=== PATIENT | male | born 1995 | race Caucasian/White ===

== ENCOUNTER 2016-11-27 22:23 | Emergency (ER) | payer OTHER ==
[2016-11-27 22:32] VITALS: PULSE 88; TEMP 97.9
--- NOTE | 2016-11-27 23:26 | CT ---
EXAMINATION TYPE: CT brain cspine wo con DATE OF EXAM: 11/27/2016 11:20 PM COMPARISON: 05/11/2013 HISTORY: Prior on synapse 2012, pt found unresponsive, overdose Findings The ventricles and sulci appear normal. There is no mass effect nor midline shift. There is no sign o f intracranial hemorrhage. The calvarium is intact. The cervical vertebra have mild straightening. Posterior elements are intact. Disc spaces are normal. Skull base is intact. mGycm Automated exposure control for dose reduction was used. TECHNIQUE: CT scan of the head and cervical spine are performed without contrast. IMPRESSION: Normal CT scan of the brain. Normal CT scan of the cervical spine. There is straightening of the vertebra that is probably positio nal. This is a change compared to last exam.
--- NOTE | 2016-11-28 00:10 | ED ---
Overdose HPI - General Chief Complaint: Overdose Stated Complaint: OVERDOSE Time Seen by Provider: 11/27/16 22:23 Source: patient, EMS, RN notes reviewed Mode of arrival: EMS - History of Present Illness Initial Comments: This is a 20-year-old male who apparently was very lethargic tonight and became somewhat unresponsive and did fall hitting his head. EMS was called he was given nasal Narcan he did seem to arouse after this. He is brought in for evaluation. He complains of a headache also some neck pain bees had a history of a fracture before. He denies any drug use denies any fevers chills or sweats. MD Complaint: other - Related Data Home Medications Medication Instructions Recorded Confirmed Albuterol Inhaler [Ventolin Hfa 1 - 2 puff INHALATION RT-Q6H PRN 11/27/16 Inhaler] Allergies Allergy/AdvReac Type Severity Reaction Status Date / Time No Known Allergies Allergy Unverified 11/27/16 22:40 Review of Systems ROS Statement: Those systems with pertinent positive or pertinent negative responses have been documented in the HPI. ROS Other: All systems not noted in ROS Statement are negative. Past Medical History Past Medical History: Asthma, Myocardial Infarction ([place]) History of Any Multi-Drug Resistant Organisms: None Reported Smoking Status: Never smoker Past Alcohol Use History: None Reported Past Drug Use History: None Reported General Exam - General Exam Comments Initial Comments: This is a well-developed well-nourished awake alert oriented history male he does demonstrate a [place] Coma Scale currently of 15 General appearance: alert, in no apparent distress Head exam: Present: normocephalic, other Eye exam: Present: normal appearance, PERRL, EOMI. Absent: scleral icterus, conjunctival injection, periorbital swelling ENT exam: Present: normal exam, mucous membranes moist Neck exam: Present: normal inspection. Absent: tenderness, meningismus, lymphadenopathy Respiratory exam: Present: normal lung sounds bilaterally. Absent: respiratory distress, wheezes, rales, rhonchi, stridor Cardiovascular Exam: Present: regular rate, normal rhythm, normal heart sounds. Absent: systolic murmur, diastolic murmur, rubs, gallop, clicks GI/Abdominal exam: Present: soft, normal bowel sounds. Absent: distended, tenderness, guarding, rebound, rigid Extremities exam: Present: normal inspection, full ROM, normal capillary refill. Absent: tenderness, pedal edema, joint swelling, calf tenderness Back exam: Present: normal inspection Neurological exam: Present: alert, oriented X3, CN II-XII intact Psychiatric exam: Present: normal affect, normal mood Skin exam: Present: warm, dry, intact, normal color. Absent: rash Course Vital Signs 11/27/16 22:28 Temperature 97.9 F Pulse Rate 88 Respiratory 20 Rate Blood Pressure 161/78 O2 Sat by Pulse 98 Oximetry Medical Decision Making - Medical Decision Making I did discuss the findings with the patient. He has agreed for a CAT scan and drug screen. The drug screen was negative the alcohol back chest was 0.87. - Lab Data Lab Results 11/27/16 Range/Units 23:25 Urine Opiates Screen Not Detected (NotDetected) Ur Oxycodone Screen Not Detected (NotDetected) Urine Methadone Screen Not Detected (NotDetected) Ur Propoxyphene Screen Not Detected (NotDetected) Ur Barbiturates Screen Not Detected (NotDetected) U Tricyclic Antidepress Not Detected (NotDetected) Ur Phencyclidine Scrn Not Detected (NotDetected) Ur Amphetamines Screen Not Detected (NotDetected) U Methamphetamines Scrn Not Detected (NotDetected) U Benzodiazepines Scrn Not Detected (NotDetected) Urine Cocaine Screen Not Detected (NotDetected) U Marijuana (THC) Screen Not Detected (NotDetected) - Radiology Data Radiology results: report reviewed (CT negative for acute findings.), image reviewed Disposition Clinical Impression: Scalp contusion, Alcohol ingestion Disposition: HOME SELF-CARE Condition: Good Instructions: Scalp Contusion in Adults (ED)
[2016-11-28 00:29] VITALS: BP 149/87; RESP 16
== END 2016-11-28 00:29 | disposition home or self-care (01) ==
LOC: EC 22:23 → SUPCPDRO 22:23 → EC 11-28 00:29
DX: S00.03XA Contusion of scalp, initial encounter (principal); T51.91XA Toxic effect of unspecified alcohol, accidental (unintentional), initial encounter; M54.2 Cervicalgia; W01.10XA Fall on same level from slipping, tripping and stumbling with subsequent striking against unspecified object, initial encounter
CPT/HCPCS: 70450; 72125; 80306; 82075; 99285

== ENCOUNTER 2017-01-20 05:32 | Emergency (ER) | payer OTHER ==
[2017-01-20] MEDS ORDERED: SODIUM CHLORIDE 0.9% 1,000 ML IV ONE ×2 (05:37→05:41)
--- NOTE | 2017-01-20 05:37 | ED ---
General Adult HPI - General Chief complaint: Chest Pain Stated complaint: Chest Pain Time Seen by Provider: 01/20/17 05:32 Source: RN notes reviewed - History of Present Illness Initial comments: This is a 21-year-old male presents emergency department stating that he got dizzy while at work and patient states he had not been drinking a lot. Patient states after that he got some left-sided chest pain he denies any shortness of breath. Patient denies any nausea. Patient states the chest pain still persists at this time. Patient states the room feels like it spinning and he still remained somewhat lightheaded. Patient denies any abdominal pain patient denies nausea vomiting diarrhea. Patient denies any recent fever chills or cough. Patient denies headache patient denies any numbness or focal weakness. - Related Data Home Medications Medication Instructions Recorded Confirmed No Known Home Medications [No 01/20/17 01/20/17 Known Home Medications] Allergies Allergy/AdvReac Type Severity Reaction Status Date / Time No Known Allergies Allergy Verified 01/20/17 05:40 Review of Systems ROS Statement: Those systems with pertinent positive or pertinent negative responses have been documented in the HPI. ROS Other: All systems not noted in ROS Statement are negative. Past Medical History Past Medical History: Asthma, Myocardial Infarction ([place]) History of Any Multi-Drug Resistant Organisms: None Reported Smoking Status: Never smoker Past Alcohol Use History: None Reported Past Drug Use History: None Reported General Exam - General Exam Comments Initial Comments: GENERAL: Patient is well-developed and well-nourished. Patient is nontoxic and well- hydrated and is in mild distress. ENT: Neck is soft and supple. No significant lymphadenopathy is noted. Oropharynx is clear. Moist mucous membranes. Neck has full range of motion without eliciting any pain. EYES: The sclera were anicteric and conjunctiva were pink and moist. Extraocular movements were intact and pupils were equal round and reactive to light. Eyelids were unremarkable. PULMONARY: Unlabored respirations. Good breath sounds bilaterally. No audible rales rhonchi or wheezing was noted. CARDIOVASCULAR: There is a regular rate and rhythm without any murmurs gallops or rubs. ABDOMEN: Soft and nontender with normal bowel sounds. No palpable organomegaly was noted. There is no palpable pulsatile mass. SKIN: Skin is clear with no lesions or rashes and otherwise unremarkable. NEUROLOGIC: Patient is alert and oriented x3. Cranial nerves II through XII are grossly intact. Motor and sensory are also intact. Normal speech, volume and content. Symmetrical smile. MUSCULOSKELETAL: Normal extremities with adequate strength and full range of motion. No lower extremity swelling or edema. No calf tenderness. LYMPHATICS: No significant lymphadenopathy is noted PSYCHIATRIC: Normal psychiatric evaluation. Normal interpersonal interactions appears functionally intact in deals appropriately with others. No signs of depression. Patient seems mildly anxious Course Vital Signs 01/20/17 05:34 Temperature 98.9 F Pulse Rate 98 Respiratory 18 Rate Blood Pressure 150/85 O2 Sat by Pulse 100 Oximetry Medical Decision Making - Medical Decision Making EKG shows a normal sinus rhythm at 80 bpm [place] interval is 138 QRS is 86 QT interval 354 QTC is 408. Patient's EKG shows no ST segment elevation or depression or T-wave abdomen is noted Chest x-ray shows no acute abnormality. One taken the room to reevaluate the patient he was sleeping in bed with his girlfriend. Patient was in actually no distress - Lab Data Result diagrams: 01/20/17 04:36 01/20/17 04:36 Lab Results 01/20/17 01/20/17 01/20/17 Range/Units 04:36 04:36 04:36 WBC 8.8 (3.8-10.6) k/uL RBC 4.78 (4.30-5.90) m/uL Hgb 15.0 (13.0-17.5) gm/dL Hct 44.3 (39.0-53.0) % MCV 92.6 (80.0-100.0) fL MCH 31.3 (25.0-35.0) pg MCHC 33.8 (31.0-37.0) g/dL RDW 13.1 (11.5-15.5) % Plt Count 177 (150-450) k/uL Neutrophils % 62 % Lymphocytes % 26 % Monocytes % 5 % Eosinophils % 3 % Basophils % 2 % Neutrophils # 5.4 (1.3-7.7) k/uL Lymphocytes # 2.3 (1.0-4.8) k/uL Monocytes # 0.5 (0-1.0) k/uL Eosinophils # 0.3 (0-0.7) k/uL Basophils # 0.2 (0-0.2) k/uL PT (9.0-12.0) sec INR (<1.1) APTT (22.0-30.0) sec Sodium 139 (137-145) mmol/L Potassium 4.1 (3.5-5.1) mmol/L Chloride 106 (98-107) mmol/L Carbon Dioxide 22 (22-30) mmol/L Anion Gap 11 mmol/L BUN 10 (9-20) mg/dL Creatinine 0.90 (0.66-1.25) mg/dL Est GFR (MDRD) Af Amer >60 (>60 ml/min/1.73 sqM) Est GFR (MDRD) Non-Af >60 (>60 ml/min/1.73 sqM) Glucose 98 (74-99) mg/dL Calcium 9.6 (8.4-10.2) mg/dL Magnesium 2.0 (1.6-2.3) mg/dL Total Bilirubin 1.1 (0.2-1.3) mg/dL AST 30 (17-59) U/L ALT 27 (21-72) U/L Alkaline Phosphatase 62 (38-126) U/L Total Creatine Kinase 214 H (55-170) U/L CK-MB (CK-2) 1.3 (0.0-2.4) ng/mL CK-MB (CK-2) Rel Index 0.6 Troponin I <0.012 (0.000-0.034) ng/mL Total Protein 7.2 (6.3-8.2) g/dL Albumin 4.6 (3.5-5.0) g/dL Urine Opiates Screen (NotDetected) Ur Oxycodone Screen (NotDetected) Urine Methadone Screen (NotDetected) Ur Propoxyphene Screen (NotDetected) Ur Barbiturates Screen (NotDetected) U Tricyclic Antidepress (NotDetected) Ur Phencyclidine Scrn (NotDetected) Ur Amphetamines Screen (NotDetected) U Methamphetamines Scrn (NotDetected) U Benzodiazepines Scrn (NotDetected) Urine Cocaine Screen (NotDetected) U Marijuana (THC) Screen (NotDetected) 01/20/17 01/20/17 Range/Units 04:36 06:15 WBC (3.8-10.6) k/uL RBC (4.30-5.90) m/uL Hgb (13.0-17.5) gm/dL Hct (39.0-53.0) % MCV (80.0-100.0) fL MCH (25.0-35.0) pg MCHC (31.0-37.0) g/dL RDW (11.5-15.5) % Plt Count (150-450) k/uL Neutrophils % % Lymphocytes % % Monocytes % % Eosinophils % % Basophils % % Neutrophils # (1.3-7.7) k/uL Lymphocytes # (1.0-4.8) k/uL Monocytes # (0-1.0) k/uL Eosinophils # (0-0.7) k/uL Basophils # (0-0.2) k/uL PT 11.8 (9.0-12.0) sec INR 1.2 (<1.1) APTT 27.0 (22.0-30.0) sec Sodium (137-145) mmol/L Potassium (3.5-5.1) mmol/L Chloride (98-107) mmol/L Carbon Dioxide (22-30) mmol/L Anion Gap mmol/L BUN (9-20) mg/dL Creatinine (0.66-1.25) mg/dL Est GFR (MDRD) Af Amer (>60 ml/min/1.73 sqM) Est GFR (MDRD) Non-Af (>60 ml/min/1.73 sqM) Glucose (74-99) mg/dL Calcium (8.4-10.2) mg/dL Magnesium (1.6-2.3) mg/dL Total Bilirubin (0.2-1.3) mg/dL AST (17-59) U/L ALT (21-72) U/L Alkaline Phosphatase (38-126) U/L Total Creatine Kinase (55-170) U/L CK-MB (CK-2) (0.0-2.4) ng/mL CK-MB (CK-2) Rel Index Troponin I (0.000-0.034) ng/mL Total Protein (6.3-8.2) g/dL Albumin (3.5-5.0) g/dL Urine Opiates Screen Not Detected (NotDetected) Ur Oxycodone Screen Not Detected (NotDetected) Urine Methadone Screen Not Detected (NotDetected) Ur Propoxyphene Screen Not Detected (NotDetected) Ur Barbiturates Screen Not Detected (NotDetected) U Tricyclic Antidepress Not Detected (NotDetected) Ur Phencyclidine Scrn Not Detected (NotDetected) Ur Amphetamines Screen Not Detected (NotDetected) U Methamphetamines Scrn Not Detected (NotDetected) U Benzodiazepines Scrn Not Detected (NotDetected) Urine Cocaine Screen Not Detected (NotDetected) U Marijuana (THC) Screen Not Detected (NotDetected) Disposition Clinical Impression: Atypical chest pain Disposition: HOME SELF-CARE Condition: Good Instructions: Chest Pain (ED) Referrals: Marcelo Chicas MD [Primary Care Provider] - 1-2 days Time of Disposition: 06:54
[2017-01-20 05:50] LABS: Basophils # (A) 0.2 k/uL (0-0.2); Basophils % (A) 2 %; CHCM 34.7; Eosinophils # (A) 0.3 k/uL (0-0.7); Eosinophils % (A) 3 %; HCT 44.3 % (39.0-53.0); HDW 2.41; Luc # (Auto) 0.16; Luc % (Auto) 2; Lymphocytes # (A) 2.3 k/uL (1.0-4.8); Lymphocytes % (A) 26 %; MCH 31.3 pg (25.0-35.0); MCHC 33.8 g/dL (31.0-37.0); MCV 92.6 fL (80.0-100.0); Mean Platelet Volume 8.2; Monocytes # (A) 0.5 k/uL (0-1.0); Monocytes % (A) 5 %; Neutrophils # (A) 5.4 k/uL (1.3-7.7); Neutrophils % (A) 62 %; RBC 4.78 m/uL (4.30-5.90); RDW 13.1 % (11.5-15.5); WBC 8.8 k/uL (3.8-10.6); WBC (Perox) 8.83
[2017-01-20 06:00] LABS: INR 1.2 (<1.1); Prothrombin Time 11.8 sec (9.0-12.0)
[2017-01-20 06:05] LABS: ALT 27 U/L (21-72); AST 30 U/L (17-59); Alkaline Phosphatase 62 U/L (38-126); Anion Gap 11 mmol/L; Blood Urea Nitrogen 10 mg/dL (9-20); Calcium 9.6 mg/dL (8.4-10.2); Carbon Dioxide 22 mmol/L (22-30); Chloride 106 mmol/L (98-107); Glucose 98 mg/dL (74-99); Non-African American GFR(MDRD) >60 (>60 ml/min/1.73 sqM); Potassium 4.1 mmol/L (3.5-5.1); Sodium 139 mmol/L (137-145); Total Bilirubin 1.1 mg/dL (0.2-1.3); Total Protein 7.2 g/dL (6.3-8.2)
[2017-01-20 06:13] LABS: Creatine Kinase 214 U/L (55-170)
--- NOTE | 2017-01-20 06:19 | XR ---
EXAM: XR Chest, 2 Views. CLINICAL HISTORY: Reason: Chest Pain TECHNIQUE: Frontal and lateral views of the chest. COMPARISON: No relevant prior studies available. FINDINGS: Lungs: Unremarkable. No consolidation. Pleural spaces: Unremarkable. No pneumothorax. Heart: Unremarkable. No cardiomegaly. Mediastinum: Unremarkable. Bones: Unremarkable. No acute fracture. IMPRESSION: Normal chest.
[2017-01-20 06:25] LABS: Creatine Kinase MB 1.3 ng/mL (0.0-2.4); Troponin I <0.012 ng/mL (0.000-0.034)
[2017-01-20 07:10] VITALS: BP 125/59; PULSE 90; RESP 16; TEMP 97.9
== END 2017-01-20 07:14 | disposition home or self-care (01) ==
LOC: EC 05:32
DX: R07.89 Other chest pain (principal); R42 Dizziness and giddiness
CPT/HCPCS: 36415; 71020; 80053; 80306; 82550; 82553; 83735; 84484; 85025; 85610; 85730; 93005; 96360; 99285

== ENCOUNTER 2018-01-07 09:26 | Emergency (ER) | payer OTHER ==
[2018-01-07 09:34] VITALS: RESP 20
--- NOTE | 2018-01-07 10:00 | XR ---
EXAMINATION TYPE: XR chest 2V DATE OF EXAM: 01/07/2018 COMPARISON: 01/20/2017 HISTORY: Chest pain TECHNIQUE: Frontal and lateral views of the chest are obtained. FINDINGS: There is no focal air space opacity. No evidence for pneumothorax. No pleural effusion. The cardiac silhouette size is within normal limits. The osseous structures are grossly intact. IMPRESSION: 1. No acute cardiopulmonary process.
[2018-01-07 10:01] LABS: Basophils % (A) 0 %; Eosinophils # (A) 0.1 k/uL (0-0.7); Eosinophils % (A) 0 %; HCT 49.1 % (39.0-53.0); Lymphocytes # (A) 1.5 k/uL (1.0-4.8); Lymphocytes % (A) 10 %; MCH 30.5 pg (25.0-35.0); MCHC 34.5 g/dL (31.0-37.0); MCV 88.5 fL (80.0-100.0); Mean Platelet Volume 7.5; Monocytes # (A) 0.5 k/uL (0-1.0); Monocytes % (A) 3 %; Neutrophils # (A) 12.6 k/uL (1.3-7.7); Neutrophils % (A) 85 %; Platelet Count 234 k/uL (150-450); RBC 5.55 m/uL (4.30-5.90); RDW 12.7 % (11.5-15.5); WBC 14.8 k/uL (3.8-10.6)
[2018-01-07 10:12] LABS: INR 1.1 (<1.2); Partial Thromboplastin Time 24.4 sec (22.0-30.0); Prothrombin Time 10.9 sec (9.0-12.0)
[2018-01-07 10:13] LABS: ALT 28 U/L (21-72); AST 30 U/L (17-59); Albumin 4.9 g/dL (3.5-5.0); Alkaline Phosphatase 70 U/L (38-126); Anion Gap 15 mmol/L; Blood Urea Nitrogen 10 mg/dL (9-20); Calcium 10.5 mg/dL (8.4-10.2); Carbon Dioxide 24 mmol/L (22-30); Chloride 103 mmol/L (98-107); Glucose 105 mg/dL (74-99); Magnesium 1.9 mg/dL (1.6-2.3); Potassium 4.2 mmol/L (3.5-5.1); Sodium 142 mmol/L (137-145); Total Bilirubin 0.7 mg/dL (0.2-1.3); Total Protein 7.6 g/dL (6.3-8.2)
[2018-01-07 10:35] LABS: Creatine Kinase 144 U/L (55-170)
[2018-01-07 10:48] LABS: Creatine Kinase MB 0.8 ng/mL (0.0-2.4); Troponin I <0.012 ng/mL (0.000-0.034)
[2018-01-07] MEDS ORDERED: SODIUM CHLORIDE 0.9% 500 ML IV ONE (10:49)
--- NOTE | 2018-01-07 10:58 | ED ---
General Adult HPI - General Chief complaint: Syncope Stated complaint: SYNCOPE Time Seen by Provider: 01/07/18 09:29 Source: patient, RN notes reviewed, old records reviewed Mode of arrival: wheelchair Limitations: no limitations - History of Present Illness Initial comments: 21-year-old male presents for evaluation of syncopal episode. Patient was on labor and delivery floor with his who is currently in labor, he became very emotional at the thought of having a new baby, he felt lightheaded and went unconscious. He was unconscious for 5-10 minutes. He did return to normal after presenting to the emergency department. There was no injury noted. Patient had no pain complaint. Denies any chest pain or palpitations. He had some numbness in both of his legs which was resolving. No vomiting or diarrhea. Patient has past medical history of asthma and hypoglycemic episodes. Blood sugar was checked and this was normal. - Related Data Home Medications Medication Instructions Recorded Confirmed No Known Home Medications [No 01/20/17 01/07/18 Known Home Medications] Allergies Allergy/AdvReac Type Severity Reaction Status Date / Time No Known Allergies Allergy Verified 01/07/18 09:57 Review of Systems ROS Statement: Those systems with pertinent positive or pertinent negative responses have been documented in the HPI. ROS Other: All systems not noted in ROS Statement are negative. Past Medical History Past Medical History: Asthma, Myocardial Infarction ([place]) History of Any Multi-Drug Resistant Organisms: None Reported Past Surgical History: Orthopedic Surgery, Tonsillectomy Additional Past Surgical History / Comment(s): bilateral knee, bilateral rotator cuff Past Psychological History: No Psychological Hx Reported Smoking Status: Never smoker Past Alcohol Use History: None Reported Past Drug Use History: None Reported General Exam Limitations: no limitations General appearance: alert, in no apparent distress Head exam: Present: atraumatic, normocephalic Eye exam: Present: normal appearance, PERRL, EOMI ENT exam: Present: normal exam Neck exam: Present: normal inspection. Absent: tenderness, meningismus Respiratory exam: Present: normal lung sounds bilaterally. Absent: respiratory distress, wheezes, rales Cardiovascular Exam: Present: regular rate, normal rhythm GI/Abdominal exam: Present: soft. Absent: distended, tenderness, guarding Extremities exam: Present: normal inspection, full ROM. Absent: tenderness Neurological exam: Present: alert, oriented X3, CN II-XII intact. Absent: motor sensory deficit Psychiatric exam: Present: normal affect, normal mood Skin exam: Present: warm, dry, intact. Absent: cyanosis, diaphoretic Course Vital Signs 01/07/18 01/07/18 09:32 10:00 Temperature 98.0 F Pulse Rate 93 82 Respiratory 20 20 Rate Blood Pressure 168/89 144/78 O2 Sat by Pulse 100 98 Oximetry EKG Findings - EKG Comments: EKG Findings:: EKG: Normal sinus rhythm, rate of 96, NC interval 126, QRS duration 84, QTC 432 Medical Decision Making - Medical Decision Making 22-year-old male with syncopal episode likely related to emotional stress. Patient's physical exam is unremarkable. EKG shows normal sinus rhythm. Workup reveals normal chest x-ray, normal electrolytes. White blood cell, mildly elevated likely reactive. On reevaluation, patient has normal vital signs. He is feeling much better. He is eager for discharge to see his new baby. - Lab Data Result diagrams: 01/07/18 09:35 01/07/18 09:35 Lab Results 01/07/18 01/07/18 01/07/18 Range/Units 09:35 09:35 09:35 WBC 14.8 H (3.8-10.6) k/uL RBC 5.55 (4.30-5.90) m/uL Hgb 17.0 (13.0-17.5) gm/dL Hct 49.1 (39.0-53.0) % MCV 88.5 (80.0-100.0) fL MCH 30.5 (25.0-35.0) pg MCHC 34.5 (31.0-37.0) g/dL RDW 12.7 (11.5-15.5) % Plt Count 234 (150-450) k/uL Neutrophils % 85 % Lymphocytes % 10 % Monocytes % 3 % Eosinophils % 0 % Basophils % 0 % Neutrophils # 12.6 H (1.3-7.7) k/uL Lymphocytes # 1.5 (1.0-4.8) k/uL Monocytes # 0.5 (0-1.0) k/uL Eosinophils # 0.1 (0-0.7) k/uL Basophils # 0.0 (0-0.2) k/uL PT (9.0-12.0) sec INR (<1.2) APTT (22.0-30.0) sec Sodium 142 (137-145) mmol/L Potassium 4.2 (3.5-5.1) mmol/L Chloride 103 (98-107) mmol/L Carbon Dioxide 24 (22-30) mmol/L Anion Gap 15 mmol/L BUN 10 (9-20) mg/dL Creatinine 0.89 (0.66-1.25) mg/dL Est GFR (CKD-EPI)AfAm >90 (>60 ml/min/1.73 sqM) Est GFR (CKD-EPI)NonAf >90 (>60 ml/min/1.73 sqM) Glucose 105 H (74-99) mg/dL Calcium 10.5 H (8.4-10.2) mg/dL Magnesium 1.9 (1.6-2.3) mg/dL Total Bilirubin 0.7 (0.2-1.3) mg/dL AST 30 (17-59) U/L ALT 28 (21-72) U/L Alkaline Phosphatase 70 (38-126) U/L Total Creatine Kinase 144 (55-170) U/L CK-MB (CK-2) 0.8 (0.0-2.4) ng/mL CK-MB (CK-2) Rel Index 0.6 Troponin I <0.012 (0.000-0.034) ng/mL Total Protein 7.6 (6.3-8.2) g/dL Albumin 4.9 (3.5-5.0) g/dL 01/07/18 Range/Units 09:35 WBC (3.8-10.6) k/uL RBC (4.30-5.90) m/uL Hgb (13.0-17.5) gm/dL Hct (39.0-53.0) % MCV (80.0-100.0) fL MCH (25.0-35.0) pg MCHC (31.0-37.0) g/dL RDW (11.5-15.5) % Plt Count (150-450) k/uL Neutrophils % % Lymphocytes % % Monocytes % % Eosinophils % % Basophils % % Neutrophils # (1.3-7.7) k/uL Lymphocytes # (1.0-4.8) k/uL Monocytes # (0-1.0) k/uL Eosinophils # (0-0.7) k/uL Basophils # (0-0.2) k/uL PT 10.9 (9.0-12.0) sec INR 1.1 (<1.2) APTT 24.4 (22.0-30.0) sec Sodium (137-145) mmol/L Potassium (3.5-5.1) mmol/L Chloride (98-107) mmol/L Carbon Dioxide (22-30) mmol/L Anion Gap mmol/L BUN (9-20) mg/dL Creatinine (0.66-1.25) mg/dL Est GFR (CKD-EPI)AfAm (>60 ml/min/1.73 sqM) Est GFR (CKD-EPI)NonAf (>60 ml/min/1.73 sqM) Glucose (74-99) mg/dL Calcium (8.4-10.2) mg/dL Magnesium (1.6-2.3) mg/dL Total Bilirubin (0.2-1.3) mg/dL AST (17-59) U/L ALT (21-72) U/L Alkaline Phosphatase (38-126) U/L Total Creatine Kinase (55-170) U/L CK-MB (CK-2) (0.0-2.4) ng/mL CK-MB (CK-2) Rel Index Troponin I (0.000-0.034) ng/mL Total Protein (6.3-8.2) g/dL Albumin (3.5-5.0) g/dL Disposition Clinical Impression: Syncope Disposition: HOME SELF-CARE Condition: Good Instructions: Syncope (ED) Is patient prescribed a controlled substance at d/c from ED?: No Referrals: None,Stated [Primary Care Provider] - 1-2 days Rachel Jameson MD [REFERRING] - 1-2 days Time of Disposition: 10:57
[2018-01-07 11:05] VITALS: BP 112/67; PULSE 99; TEMP 98.5
== END 2018-01-07 11:15 | disposition home or self-care (01) ==
LOC: EC 09:26
DX: R55 Syncope and collapse (principal); D72.829 Elevated white blood cell count, unspecified; R42 Dizziness and giddiness; R20.0 Anesthesia of skin; Z98.890 Other specified postprocedural states
CPT/HCPCS: 36415; 71046; 80053; 82550; 82553; 83735; 84484; 85025; 85610; 85730; 93005; 99284

== ENCOUNTER 2018-02-09 06:03 | Observation (INO) | payer OTHER ==
[2018-02-09] MEDS ORDERED: SODIUM CHLORIDE 0.9% 1,000 ML IV STA (06:20)
[2018-02-09 06:25] LABS: Glucose,Whole Blood 85 mg/dL (75-99)
[2018-02-09 06:33] LABS: Basophils # (A) 0.1 k/uL (0-0.2); Basophils % (A) 1 %; Eosinophils # (A) 0.3 k/uL (0-0.7); Eosinophils % (A) 3 %; HCT 43.7 % (39.0-53.0); HGB 15.7 gm/dL (13.0-17.5); Lymphocytes # (A) 2.8 k/uL (1.0-4.8); Lymphocytes % (A) 30 %; MCH 31.8 pg (25.0-35.0); MCHC 35.9 g/dL (31.0-37.0); MCV 88.8 fL (80.0-100.0); Mean Platelet Volume 7.5; Monocytes # (A) 0.5 k/uL (0-1.0); Monocytes % (A) 5 %; Neutrophils # (A) 5.6 k/uL (1.3-7.7); Neutrophils % (A) 59 %; Platelet Count 186 k/uL (150-450); RBC 4.93 m/uL (4.30-5.90); WBC 9.5 k/uL (3.8-10.6)
[2018-02-09 06:48] LABS: ALT 24 U/L (21-72); AST 27 U/L (17-59); Albumin 4.2 g/dL (3.5-5.0); Alkaline Phosphatase 56 U/L (38-126); Anion Gap 13 mmol/L; Blood Urea Nitrogen 19 mg/dL (9-20); Calcium 9.6 mg/dL (8.4-10.2); Carbon Dioxide 20 mmol/L (22-30); Chloride 104 mmol/L (98-107); Glucose 79 mg/dL (74-99); Magnesium 1.6 mg/dL (1.6-2.3); Potassium 4.1 mmol/L (3.5-5.1); Sodium 137 mmol/L (137-145); Total Bilirubin 0.8 mg/dL (0.2-1.3); Total Protein 6.5 g/dL (6.3-8.2)
[2018-02-09 06:53] LABS: D-Dimer 0.25 mg/L FEU (<0.60); INR 1.2 (<1.2); Prothrombin Time 11.4 sec (9.0-12.0)
[2018-02-09 06:54] LABS: Creatine Kinase 171 U/L (55-170)
[2018-02-09 07:06] LABS: Creatine Kinase MB 1.3 ng/mL (0.0-2.4); Troponin I <0.012 ng/mL (0.000-0.034)
--- NOTE | 2018-02-09 07:14 | XR ---
EXAMINATION TYPE: XR chest 2V DATE OF EXAM: 02/09/2018 COMPARISON: 01/07/2018 HISTORY: 22-year-old male with chest pain TECHNIQUE: AP and lateral views FINDINGS: The cardiomediastinal silhouette, aorta, and pulmonary vasculature are within normal limits. Lungs an d pleural spaces are clear. IMPRESSION: No acute cardiopulmonary process.
[2018-02-09 07:41] LABS: Partial Thromboplastin Time 21.1 sec (22.0-30.0)
[2018-02-09 08:29] LABS: Appearance,Urine Clear (Clear); Bilirubin,Urine Negative (Negative); Blood,Urine Negative (Negative); Color,Urine Yellow; Glucose,Urine (UA) Negative (Negative); Hyaline Casts,Urine 5 /lpf (0-2); Ketones,Urine Negative (Negative); Leukocyte Esterase,Urine Moderate (Negative); Mucus,Urine Rare /hpf; Nitrite,Urine Negative (Negative); Protein,Urine Negative (Negative); Specific Gravity,Urine 1.013 (1.001-1.035); Squamous Epithelial Cell,Urine <1 /hpf (0-4); Urobilinogen,Urine <2.0 mg/dL (<2.0); WBC,Urine 5 /hpf (0-5)
[2018-02-09] MEDS ORDERED: MORPHINE SULFATE 2 MG/ML SYRINGE IV PRN (08:38)
[2018-02-09] MEDS ORDERED: NITROGLYCERIN SL TABS 0.4 MG TAB SUBLINGUAL PRN (08:38)
--- NOTE | 2018-02-09 08:38 | ED ---
Chest Pain HPI - General Chief Complaint: Chest Pain Stated Complaint: heat exhaustion Time Seen by Provider: 02/09/18 06:11 Source: patient, EMS Mode of arrival: EMS Limitations: no limitations - History of Present Illness Initial Comments: 22 years old gentleman with history of chest pain got very dizzy almost passed out and now presents with the chest pain he said he has a history of heart attack in the past and chest pain gets worse with deep breaths denies any trauma to the chest no fever no chills denies any cough or purulent sputum - Related Data Home Medications Medication Instructions Recorded Confirmed No Known Home Medications 01/20/17 02/09/18 Allergies Allergy/AdvReac Type Severity Reaction Status Date / Time No Known Allergies Allergy Verified 02/09/18 07:58 Review of Systems ROS Statement: Those systems with pertinent positive or pertinent negative responses have been documented in the HPI. ROS Other: All systems not noted in ROS Statement are negative. 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 Looks pale and tired Skin: Skin is warm and dry and no rashes or lesions are noted. Eye: Pupils are equal, round and reactive to light, extra-ocular movements are intact; there is normal conjunctiva bilaterally. Ears, nose, mouth and throat: There are moist mucous membranes and no oral lesions. Neck: The neck is supple, there is no tenderness or JVD. Cardiovascular: There is a regular rate and rhythm. No murmur, rub or gallop is appreciated. Respiratory: To auscultation bilateral, no wheezing no rhonchi no distress respiratory alvarez noticed Gastrointestinal: Soft, non-distended, non-tender abdomen without masses or organomegaly noted. There is no rebound or guarding present. Bowel sounds are unremarkable. Back: There is no tenderness to palpation in the midline. There is no obvious deformity. Musculoskeletal: Normal ROM, no tenderness, There is no pedal edema. There is no calf tenderness or swelling. No cords were appreciated. Neurological: CN II-XII intact, Cranial nerves III through XII are intact. There are no obvious motor or sensory deficits. Coordination appears grossly intact. Speech is normal. Psychiatric: Cooperative, appropriate mood & affect, normal judgment. Limitations: no limitations Course Vital Signs 02/09/18 02/09/18 06:05 08:01 Temperature 97.9 F Pulse Rate 91 87 Respiratory 18 18 Rate Blood Pressure 140/81 137/73 O2 Sat by Pulse 100 97 Oximetry Jihan is reassessed at term 8:30 he said he still has slight chest pain it has got lot better his EKG was reviewed, d-dimer is normal, white count is normal, troponin is normal considering his continuous chest discomfort have been admitted to the hospital for 3 sets of cardiac markers and now Dr. Chicas he said if his doctor and now cardiology consult Disposition Clinical Impression: Chest pain Disposition: ADMITTED IP TO THIS HOSP Condition: Good Referrals: None,Stated [Primary Care Provider] - 1-2 days
[2018-02-09] MEDS: ASPIRIN 81 MG PO SCH (09:02)
[2018-02-09 10:43] VITALS: BMI 27.2
[2018-02-09 13:23] LABS: Creatine Kinase 142 U/L (55-170)
[2018-02-09 13:36] LABS: Creatine Kinase MB 1.3 ng/mL (0.0-2.4); Troponin I <0.012 ng/mL (0.000-0.034)
[2018-02-09 19:10] LABS: Creatine Kinase 149 U/L (55-170)
[2018-02-09 19:23] LABS: Creatine Kinase MB 1.2 ng/mL (0.0-2.4); Troponin I <0.012 ng/mL (0.000-0.034)
[2018-02-10 02:39] LABS: Cholesterol 129 mg/dL (<200); HDL Cholesterol 51 mg/dL (40-60); LDL Cholesterol,Calculated 63 mg/dL (0-99); Triglycerides 74 mg/dL (<150)
--- NOTE | 2018-02-10 07:15 | P.PN ---
Subjective Progress Note Date: 02/10/18 Principal diagnosis: This is a history of physical and 22-year-old white male essentially admitted for chest pressure. There is some dizziness noted. He hasn't underlying history of supposed with previous heart attack. Review my old records only shows history of chest pain. No previous history of cardiac medications and his chart however. He does have significant family history and his parents with heart disease. The patient is not a symptomatically since being placed on observation unit. No history of fever or chills. No history of reflux. No abnormal dietary intake stated. He is a nonsmoker. The patient now has had negative cardiac enzyme elevation. The patient is now otherwise asymptomatic. No history of syncope since being admitted. There was dizziness element prior to admission. The patient states that the pain was about an 8 out of 10. Objective - Vital Signs Vital signs: Vital Signs Temp 97.7 F 02/10/18 03:41 Pulse 76 02/10/18 03:41 Resp 16 02/10/18 03:41 BP 122/63 02/10/18 03:41 Pulse Ox 100 02/10/18 03:41 Intake & Output 02/09/18 02/10/18 02/10/18 18:59 06:59 18:59 Intake Total 1600 Balance 1600 Weight 86.2 kg Intake: Oral 1600 Other: Voiding Method Toilet # Voids 1 - Constitutional General appearance: Present: average body habitus - EENT Eyes: Absent: abnormal pupil - Neck Neck: Absent: lymphadenopathy - Respiratory Respiratory: bilateral: CTA - Cardiovascular Rhythm: regular Heart sounds: normal: S1, S2 Abnormal Heart Sounds: Absent: systolic murmur, S3 Gallop - Gastrointestinal General gastrointestinal: Present: soft. Absent: tenderness - Integumentary Integumentary: Absent: cellulitis - Musculoskeletal Musculoskeletal: Present: gait normal - Labs CBC & Chem 7: 02/09/18 06:19 02/09/18 06:19 Labs: Abnormal Lab Results - Last 24 Hours (Table) 02/09/18 02/09/18 02/09/18 Range/Units 06:19 06:19 06:24 INR 1.2 H (<1.2) APTT 21.1 L (22.0-30.0) sec Total Creatine Kinase 171 H (55-170) U/L Ur Leukocyte Esterase Moderate H (Negative) Hyaline Casts 5 H (0-2) /lpf Urine Mucus Rare H (None) /hpf Assessment and Plan (1) Chest pain Current Visit: Yes Status: Acute Code(s): R07.9 - CHEST PAIN, UNSPECIFIED SNOMED Code(s): 84027804 Plan: Myocardial infraction ruled out. Element of stress testing will be elucidated by cardiology. Otherwise, we will continue to follow closely. Reconcile medications as necessary. Was some modifications as needed.
[2018-02-10 08:00] VITALS: RESP 18
[2018-02-10] MEDS ORDERED: ASPIRIN 325 MG TAB PO SCH (09:00)
--- NOTE | 2018-02-10 09:00 | P.CRDCN ---
History of Present Illness Consult date: 02/10/18 History of present illness: This is a 22-year-old male with family history of ischemic heart disease who is admitted to the hospital with complaints of chest pain. 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 He also started having chest pain on the left side of the chest which is well localized. It appears there was some tenderness in that area. The pain did not radiate. Not associated with nausea, vomiting. It lasted several hours yesterday and then subsided. His EKG did not reveal any acute changes. Cardiac enzymes are negative. The pain appears to be noncardiac and muscular skeletal. He is being scheduled for next regular stress test and echocardiogram. 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," hypoglycemia, Last Myocardial Infarction Date:: 2011 History of Any Multi-Drug Resistant Organisms: None Reported Past Surgical History: Orthopedic Surgery, Tonsillectomy Additional Past Surgical History / Comment(s): bilateral knee arthoscopic, bilateral rotator cuff repair Past Anesthesia/Blood Transfusion Reactions: No Reported Reaction Past Psychological History: No Psychological Hx Reported Smoking Status: Never smoker Past Alcohol Use History: Occasional Past Drug Use History: Marijuana - Past Family History Father Family Medical History: Diabetes Mellitus Medications and Allergies Home Medications Medication Instructions Recorded Confirmed Type No Known Home Medications 01/20/17 02/09/18 History Allergies Allergy/AdvReac Type Severity Reaction Status Date / Time No Known Allergies Allergy Verified 02/09/18 07:58 Physical Exam Vitals: Vital Signs Temp Pulse Pulse Resp BP Pulse Ox 02/10/18 07:25 97.7 F 68 18 120/65 96 02/10/18 03:41 97.7 F 76 16 122/63 100 02/10/18 03:28 16 02/09/18 23:25 16 02/09/18 23:15 98.0 F 67 16 112/56 100 02/09/18 19:40 16 02/09/18 19:19 98.0 F 86 16 171/79 98 02/09/18 15:38 98.5 F 82 18 123/59 97 02/09/18 12:41 70 18 121/58 97 02/09/18 09:50 98 F 86 18 120/61 Intake and Output 02/09/18 02/10/18 02/10/18 22:59 06:59 14:59 Intake Total 1200 Balance 1200 Intake: Oral 1200 Other: Voiding Method Toilet Toilet GENERAL EXAM: Patient is alert and oriented and doesn't appear to be in any acute distress HEENT: Normocephalic. Normal reaction of pupils, equal size, normal range of extraocular motion. No erythema or exudates in the throat. NECK: No masses, no nuchal rigidity. CHEST: No chest wall deformity. LUNGS: Equal air entry with no crackles or wheeze. HEART: S1 and S2 normal with no audible mumurs or gallops. Regular rhythm, femorals equal on both sides.. ABDOMEN: No hepatosplenomegaly, normal bowel sounds, no guarding or rigidity. SKIN: No rashes CENTRAL NERVOUS SYSTEM: No focal deficits. EXTREMITIES: No cyanosis, clubbing or edema. Results 02/09/18 06:19 02/09/18 06:19 Cardiac Enzymes 02/09/18 02/09/18 Range/Units 12:33 18:24 CK-MB (CK-2) 1.3 1.2 (0.0-2.4) ng/mL Troponin I <0.012 <0.012 (0.000-0.034) ng/mL Lipids 02/09/18 Range/Units 06:19 Triglycerides 74 (<150) mg/dL Cholesterol 129 (<200) mg/dL HDL Cholesterol 51 (40-60) mg/dL Current Medications Generic Name Dose Route Start Last Admin Trade Name Davonq PRN Reason Stop Dose Admin Aspirin 81 mg 02/09/18 09:00 02/09/18 09:02 Aspirin PO 81 mg DAILY ASHLEIGH Administration Morphine Sulfate 4 mg 02/09/18 08:38 Morphine Sulfate (Inj) IV Q5M PRN CHEST PAIN Nitroglycerin 0.4 mg 02/09/18 08:38 Nitrostat SUBLINGUAL Q5M PRN Chest Pain Intake and Output 02/09/18 02/10/18 02/10/18 22:59 06:59 14:59 Intake Total 1200 Balance 1200 Intake: Oral 1200 Other: Voiding Method Toilet Toilet 02/09/18 06:19 07/02/18 06:19 EKG Interpretations (text) Sinus rhythm Assessment and Plan (1) Chest pain Current Visit: Yes Status: Acute Code(s): R07.9 - CHEST PAIN, UNSPECIFIED SNOMED Code(s): 40567846 Plan: Patient chest pain appeared to be atypical and probably musculo- skeletal. Patient is being scheduled for a regular stress test and echocardiogram. If the tests are negative, patient could be discharged home. Risk factor modification is recommended, given his family history.
--- NOTE | 2018-02-10 10:40 | ECHOF ---
Referral Reason:Chest pain and cardiomyopathy MEASUREMENTS -------- HEIGHT: 180.3 cm WEIGHT: 86.2 kg BP: IVSd: 0.9 cm (0.6 - 1.1) LVIDd: 4.0 cm (3.9 - 5.3) LVPWd: 1.2 cm (0.6 - 1.1) IVSs: 1.4 cm LVIDs: 2.0 cm LVPWs: 1.8 cm Ao Diam: 3.1 cm (2.0 - 3.7) AV Cusp: 1.6 cm (1.5 - 2.6) LA Diam: 2.9 cm (2.7 - 3.8) MV EXCURSION: 29.848 mm (> 18.000) MV EF SLOPE: 195 mm/s (70 - 150) EPSS: 0.3 cm MV E Juancho: 0.60 m/s MV DecT: 163 ms MV A Juancho: 0.41 m/s MV E/A Ratio: 1.47 RAP: 5.00 mmHg RVSP: 22.92 mmHg FINDINGS -------- Sinus rhythm. This was a technically good study. The left ventricular size is normal. There is mild concentric left ventricular hypertrophy. Overa ll left ventricular systolic function is low-normal with, an EF between 50 - 55 %. The right ventricle is normal in size and function. The left atrium is normal in size. The right atrium is normal in size. The aortic valve is trileaflet, and appears structurally normal. No aortic stenosis or regurgitation. There is trace mitral regurgitation. Trace tricuspid regurgitation present. The right ventricular systolic pressure, as measured by Dopp ler, is 22.92mmHg. Pulmonic valve appears structurally normal. The aortic root size is normal. Normal inferior vena cava with normal inspiratory collapse consistent with estimated right atrial pre ssure of 5 mmHg. The pericardium is normal. CONCLUSIONS -------- 1. Sinus rhythm. 2. This was a technically good study. 3. The left ventricular size is normal. 4. There is mild concentric left ventricular hypertrophy. 5. Overall left ventricular systolic function is low-normal with, an EF between 50 - 55 %. 6. The right ventricle is normal in size and function. 7. The left atrium is normal in size. 8. The right atrium is normal in size. 9. The aortic valve is trileaflet, and appears structurally normal. No aortic stenosis or regurgitati on. 10. There is trace mitral regurgitation. 11. Trace tricuspid regurgitation present. 12. The right ventricular systolic pressure, as measured by Doppler, is 22.92mmHg. 13. Pulmonic valve appears structurally normal. 14. The aortic root size is normal. 15. Normal inferior vena cava with normal inspiratory collapse consistent with estimated right atrial pressure of 5 mmHg. 16. The pericardium is normal. EMPLOYMENT TRAINING SPECIALIST: Lois Mcgowan RDCS
[2018-02-10] MEDS: ASPIRIN 81 MG PO SCH (11:03)
[2018-02-10 11:41] VITALS: BP 115/69; PULSE 85; TEMP 98.2
--- NOTE | 2018-02-10 11:42 | EST ---
EXERCISE STRESS DATE OF SERVICE: 02/10/2018 AGE: 22 SEX: Male HT: 5'10" WT: 190 PROTOCOL: Avery STAGE: IV DURATION OF EXERCISE: 12 minutes HEART RATE REST: 73 BLOOD PRESSURE REST: 135/88 MAXIMUM HEART RATE ACHIEVED: 170 MAXIMUM BLOOD PRESSURE: 211/72 85% MPHR: 167 100% MPHR: 197 METS: 12.3 INDICATIONS: Chest pain. CLINICAL INFORMATION: Baseline EKG revealed normal sinus rhythm without significant ST-T changes. Patient walked for 12 minutes on standard Avery protocol, achieved a maximal heart rate of 170 beats per minute, which is more than 85% of predicted maximal. He developed some fatigue and shortness of breath, but did not have any angina or any significant arrhythmia. By EKG criteria, this is a negative stress test with excellent exercise capacity. SUKHWINDER / SUNNYN: [id number] /
== END 2018-02-10 14:30 | disposition home or self-care (01) ==
LOC: EC 06:03 → 3OBS 08:38
PROVIDERS: ADMIT Family Medicine; ATTEND Family Medicine
DX: R07.89 Other chest pain (principal); R42 Dizziness and giddiness; I25.2 Old myocardial infarction; Z82.49 Family history of ischemic heart disease and other diseases of the circulatory system; Z83.3 Family history of diabetes mellitus
CPT/HCPCS: 96361 ×5; 96360 ×2; 99285; 36415; 93005; 93017; 93306; 85379; 80061; 80053; 82550; 82553; 83735; 84484; 85025; 85610; 85730; 81001; 71046; G0378 ×2

== ENCOUNTER 2018-04-09 11:46 | Emergency (ER) | payer OTHER ==
[2018-04-09] MEDS ORDERED: ASPIRIN 81 MG PO STA (12:09)
[2018-04-09] MEDS ORDERED: LORazepam 1 MG TAB PO STA (12:29)
--- NOTE | 2018-04-09 12:32 | XR ---
EXAMINATION TYPE: XR chest 2V DATE OF EXAM: 04/09/2018 COMPARISON: 02/09/2018 HISTORY: 22-year-old male with chest pain TECHNIQUE: PA and lateral views FINDINGS: The cardiomediastinal silhouette, aorta, and pulmonary vasculature are within normal limits. Lungs an d pleural spaces are clear. Suture anchor right humeral head. IMPRESSION: No acute cardiopulmonary process.
--- NOTE | 2018-04-09 12:42 | ED ---
General Adult HPI - General Chief complaint: Chest Pain Stated complaint: chest pain, has Hx Source: patient Mode of arrival: wheelchair Limitations: no limitations - History of Present Illness Initial comments: Dictation was produced using [employer] dictation software. please excuse any grammatical, word or spelling errors. Chief Complaint: 22-year-old male presents with chest pain and bilateral upper extremity paresthesias. History of Present Illness: States that he was concerned because he was told he had a mini heart attack when he was 16. Work today when he began experiencing the symptoms. He states that his expressing chest pain to her bilateral chest. Reports that his symptoms started approximately 1 hour prior to arrival. He was seen in the emergency department approximately 2 months ago where he was admitted and evaluated by cardiology. He was sent home. Patient denies any other complaints at this time. Denies any history of anxiety. The ROS documented in this emergency department record has been reviewed and confirmed by me. Those systems with pertinent positive or negative responses have been documented in the HPI. All other systems are other negative and/or noncontributory. - Related Data Home Medications Medication Instructions Recorded Confirmed No Known Home Medications 01/20/17 04/09/18 Allergies Allergy/AdvReac Type Severity Reaction Status Date / Time No Known Allergies Allergy Verified 04/09/18 12:07 Review of Systems ROS Statement: Those systems with pertinent positive or pertinent negative responses have been documented in the HPI. ROS Other: All systems not noted in ROS Statement are negative. 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," hypoglycemia, Last Myocardial Infarction Date:: 2011 History of Any Multi-Drug Resistant Organisms: None Reported Past Surgical History: Orthopedic Surgery, Tonsillectomy Additional Past Surgical History / Comment(s): bilateral knee arthoscopic, bilateral rotator cuff repair Past Anesthesia/Blood Transfusion Reactions: No Reported Reaction Past Psychological History: No Psychological Hx Reported Smoking Status: Never smoker Past Alcohol Use History: Occasional Past Drug Use History: Marijuana - Past Family History Father Family Medical History: Diabetes Mellitus General Exam - General Exam Comments Initial Comments: PHYSICAL EXAM: General Impression: Alert and oriented x3, not in acute distress HEENT: Normocephalic atraumatic, extra-ocular movements intact, pupils equal and reactive to light bilaterally, mucous membranes moist. Cardiovascular: Heart regular rate and rhythm, S1&S2 audible, no murmurs, rubs or gallops Chest: Lungs clear to auscultation bilaterally, no rhonchi, no wheeze, no rales Abdomen: Bowel sounds present, abdomen soft, non-tender, non-distended, no organomegaly Musculoskeletal: Pulses present and equal in all extremities, no peripheral edema Motor: Power 5/5 bilaterally, no focal deficits noted Neurological: CN II-XII grossly intact, no focal motor or sensory deficits noted Skin: Intact with no visualized rashes Psych: Anxious Limitations: no limitations Course Vital Signs 04/09/18 04/09/18 04/09/18 11:56 12:00 13:30 Temperature 97.8 F Pulse Rate 89 80 Pulse Rate [ 86 Adult Neuropsychologist ] Respiratory 16 20 16 Rate Blood Pressure 133/77 128/80 O2 Sat by Pulse 99 98 Oximetry 04/09/18 04/09/18 14:30 15:30 Temperature 98.7 F 98.2 F Pulse Rate 84 86 Pulse Rate [ Adult Neuropsychologist ] Respiratory 18 16 Rate Blood Pressure 130/77 136/73 O2 Sat by Pulse 98 100 Oximetry Medical Decision Making - Medical Decision Making ED course: 22-year-old male without any comorbidities presents with chest pain and bilateral upper extremity paresthesias. Vital signs upon arrival are within acceptable limits. Patient appears well. EKGs benign no signs of ischemia or myocardial infarction. Patient does not have any risk factors. Laboratory evaluation obtained. Leukocytosis of 12.0 likely secondary to stress. Rest of CBC unremarkable. Coag panel negative. Metabolic panel is negative. Patient has 2 sets of negative troponins. Discussed with patient that he has very slight chance of having acute coronary syndrome given normal EKG, 2 sets of negative troponins and stable vital signs. Patient did receive an antianxiety medication. He was observed in emergency department reevaluated with stable medical condition. Patient told to follow-up with his primary care physician. Given strict return precautions to return to the emergency Department with any worsening symptoms. Patient understandable and agreeable to plan. Patient's clinical presentation is chest pain without high risk features. EKG Interpretation: A 12 lead EKG was obtained. It was interpreted by myself and attending physician. There is a P wave before every QRS complex. Rate is 80. Rhythm is sinus rhythm, VT interval 142, QRS 84, QTC 41. QT is not prolonged. No ST segment depression or elevation. , this EKG is unremarkable - Lab Data Result diagrams: 04/09/18 12:34 04/09/18 12:34 Lab Results 04/09/18 04/09/18 04/09/18 Range/Units 12:34 12:34 12:34 WBC 12.0 H (3.8-10.6) k/uL RBC 5.33 (4.30-5.90) m/uL Hgb 16.5 (13.0-17.5) gm/dL Hct 49.0 (39.0-53.0) % MCV 92.0 (80.0-100.0) fL MCH 30.9 (25.0-35.0) pg MCHC 33.6 (31.0-37.0) g/dL RDW 12.6 (11.5-15.5) % Plt Count 203 (150-450) k/uL Neutrophils % 72 % Lymphocytes % 20 % Monocytes % 4 % Eosinophils % 3 % Basophils % 1 % Neutrophils # 8.6 H (1.3-7.7) k/uL Lymphocytes # 2.4 (1.0-4.8) k/uL Monocytes # 0.5 (0-1.0) k/uL Eosinophils # 0.4 (0-0.7) k/uL Basophils # 0.1 (0-0.2) k/uL PT (9.0-12.0) sec INR (<1.2) APTT (22.0-30.0) sec Sodium 142 (137-145) mmol/L Potassium 4.1 (3.5-5.1) mmol/L Chloride 105 (98-107) mmol/L Carbon Dioxide 26 (22-30) mmol/L Anion Gap 11 mmol/L BUN 15 (9-20) mg/dL Creatinine 0.93 (0.66-1.25) mg/dL Est GFR (CKD-EPI)AfAm >90 (>60 ml/min/1.73 sqM) Est GFR (CKD-EPI)NonAf >90 (>60 ml/min/1.73 sqM) Glucose 97 (74-99) mg/dL Calcium 10.5 H (8.4-10.2) mg/dL Magnesium 2.2 (1.6-2.3) mg/dL Total Bilirubin 0.6 (0.2-1.3) mg/dL AST 32 (17-59) U/L ALT 23 (21-72) U/L Alkaline Phosphatase 64 (38-126) U/L Total Creatine Kinase 231 H (55-170) U/L CK-MB (CK-2) 1.6 (0.0-2.4) ng/mL CK-MB (CK-2) Rel Index 0.7 Troponin I <0.012 (0.000-0.034) ng/mL Total Protein 7.9 (6.3-8.2) g/dL Albumin 4.9 (3.5-5.0) g/dL 04/09/18 04/09/18 Range/Units 12:34 15:28 WBC (3.8-10.6) k/uL RBC (4.30-5.90) m/uL Hgb (13.0-17.5) gm/dL Hct (39.0-53.0) % MCV (80.0-100.0) fL MCH (25.0-35.0) pg MCHC (31.0-37.0) g/dL RDW (11.5-15.5) % Plt Count (150-450) k/uL Neutrophils % % Lymphocytes % % Monocytes % % Eosinophils % % Basophils % % Neutrophils # (1.3-7.7) k/uL Lymphocytes # (1.0-4.8) k/uL Monocytes # (0-1.0) k/uL Eosinophils # (0-0.7) k/uL Basophils # (0-0.2) k/uL PT 10.3 (9.0-12.0) sec INR 1.1 (<1.2) APTT 24.9 (22.0-30.0) sec Sodium (137-145) mmol/L Potassium (3.5-5.1) mmol/L Chloride (98-107) mmol/L Carbon Dioxide (22-30) mmol/L Anion Gap mmol/L BUN (9-20) mg/dL Creatinine (0.66-1.25) mg/dL Est GFR (CKD-EPI)AfAm (>60 ml/min/1.73 sqM) Est GFR (CKD-EPI)NonAf (>60 ml/min/1.73 sqM) Glucose (74-99) mg/dL Calcium (8.4-10.2) mg/dL Magnesium (1.6-2.3) mg/dL Total Bilirubin (0.2-1.3) mg/dL AST (17-59) U/L ALT (21-72) U/L Alkaline Phosphatase (38-126) U/L Total Creatine Kinase (55-170) U/L CK-MB (CK-2) (0.0-2.4) ng/mL CK-MB (CK-2) Rel Index Troponin I <0.012 (0.000-0.034) ng/mL Total Protein (6.3-8.2) g/dL Albumin (3.5-5.0) g/dL Disposition Clinical Impression: Chest pain Disposition: HOME SELF-CARE Condition: Good Instructions: Chest Pain (ED) Is patient prescribed a controlled substance at d/c from ED?: No Referrals: Marcelo Chicas MD [Primary Care Provider] - 1-2 days Time of Disposition: 16:56
[2018-04-09 12:43] LABS: Basophils # (A) 0.1 k/uL (0-0.2); Basophils % (A) 1 %; Eosinophils # (A) 0.4 k/uL (0-0.7); Eosinophils % (A) 3 %; HGB 16.5 gm/dL (13.0-17.5); Lymphocytes # (A) 2.4 k/uL (1.0-4.8); Lymphocytes % (A) 20 %; MCH 30.9 pg (25.0-35.0); MCHC 33.6 g/dL (31.0-37.0); Mean Platelet Volume 7.3; Monocytes # (A) 0.5 k/uL (0-1.0); Monocytes % (A) 4 %; Neutrophils # (A) 8.6 k/uL (1.3-7.7); Neutrophils % (A) 72 %; Platelet Count 203 k/uL (150-450); RBC 5.33 m/uL (4.30-5.90); RDW 12.6 % (11.5-15.5)
[2018-04-09 12:52] LABS: INR 1.1 (<1.2); Partial Thromboplastin Time 24.9 sec (22.0-30.0); Prothrombin Time 10.3 sec (9.0-12.0)
[2018-04-09 12:53] LABS: ALT 23 U/L (21-72); AST 32 U/L (17-59); Albumin 4.9 g/dL (3.5-5.0); Alkaline Phosphatase 64 U/L (38-126); Anion Gap 11 mmol/L; Blood Urea Nitrogen 15 mg/dL (9-20); Calcium 10.5 mg/dL (8.4-10.2); Carbon Dioxide 26 mmol/L (22-30); Chloride 105 mmol/L (98-107); Glucose 97 mg/dL (74-99); Magnesium 2.2 mg/dL (1.6-2.3); Potassium 4.1 mmol/L (3.5-5.1); Sodium 142 mmol/L (137-145); Total Bilirubin 0.6 mg/dL (0.2-1.3); Total Protein 7.9 g/dL (6.3-8.2)
[2018-04-09 13:12] LABS: Creatine Kinase 231 U/L (55-170)
[2018-04-09 13:24] LABS: Creatine Kinase MB 1.6 ng/mL (0.0-2.4); Troponin I <0.012 ng/mL (0.000-0.034)
[2018-04-09 15:44] VITALS: RESP 16
[2018-04-09 17:24] VITALS: BP 132/80; PULSE 84; TEMP 97.8
== END 2018-04-09 17:28 | disposition home or self-care (01) ==
LOC: EC 11:46
DX: R07.9 Chest pain, unspecified (principal); I25.2 Old myocardial infarction
CPT/HCPCS: 36415; 71046; 80053; 82550; 82553; 83735; 84484; 85025; 85610; 85730; 93005; 99285

== ENCOUNTER 2019-06-21 20:41 | Emergency (ER) | payer BC ==
[2019-06-21 20:45] VITALS: RESP 18; TEMP 98.1
[2019-06-21] MEDS ORDERED: MORPHINE SULFATE 4 MG/ML SYRINGE IM STA (20:53)
--- NOTE | 2019-06-21 21:31 | CT ---
EXAMINATION TYPE: CT brain rosa wo con DATE OF EXAM: 06/21/2019 COMPARISON: 11/27/2016 HISTORY: Fall injury, neck pain CT DLP: 1305.9 mGycm Automated exposure control for dose reduction was used. TECHNIQUE: CT scan of the head and cervical spine are performed without contrast. FINDINGS: Ventricles and sulci appear normal. There is no mass effect nor midline shift. There is n o sign of intracranial hemorrhage. Calvarium is intact. Cervical vertebra have fairly normal alignment. Posterior elements are intact. Disc spaces are normal . There is no evidence for fracture. Skull base is intact. There is no evidence of paraspinal mass. IMPRESSION: Negative CT scan of the brain. No change. Negative CT scan of the cervical spine. No change.
--- NOTE | 2019-06-21 21:55 | XR ---
EXAMINATION TYPE: XR pelvis AP view DATE OF EXAM: 06/21/2019 COMPARISON: NONE HISTORY: Left hip pain after falling TECHNIQUE: Single view FINDINGS: Pelvic ring is intact. Proximal femurs and hip joints are intact. Sacroiliac joints appear intact. IMPRESSION: Normal pelvis
--- NOTE | 2019-06-21 22:02 | XR ---
EXAMINATION TYPE: XR lumbar spine 2 or 3V DATE OF EXAM: 06/21/2019 COMPARISON: NONE HISTORY: Back pain TECHNIQUE: 3 views FINDINGS: Vertebra have normal spacing and alignment. Posterior elements are intact. Sacroiliac joint s appear normal. There is no compression fracture. IMPRESSION: Negative lumbar spine exam.
--- NOTE | 2019-06-21 22:03 | XR ---
EXAMINATION TYPE: XR thoracic spine complete DATE OF EXAM: 06/21/2019 COMPARISON: NONE HISTORY: Back pain TECHNIQUE: 3 views FINDINGS: Vertebra have normal spacing and alignment. Posterior elements are intact. There is no para spinal mass. There is no sign of compression fracture. IMPRESSION: Negative thoracic spine exam.
[2019-06-21] MEDS ORDERED: ACET/COD 300 MG/30 MG STARTER PACK 6 TAB BTL PO STA (22:21)
--- NOTE | 2019-06-21 22:21 | ED ---
General Adult HPI - General Chief complaint: Fall Stated complaint: Fall Time Seen by Provider: 06/21/19 20:46 Source: patient, RN notes reviewed, old records reviewed Mode of arrival: ambulatory Limitations: no limitations - History of Present Illness Initial comments: 23-year-old female patient presents ED for chief complaint of slip and fall. Patient reports that he was walking, slipped on slick steps. Fell down approximate 5 steps. Patient reports that he hit the back of his head as well as his neck on the steps as well as his thoracic and lumbar spine. Please a humidified approximate 5 second loss of consciousness. Denies any saddle of blood thinners. Denies any other complaints. Systemic: Pt denies fatigue, fever/chills, rash. Pt denies weakness, night sweats, weight loss. Neuro: Pt denies headache, visual disturbances, syncope or pre-syncope. HEENT: Pt denies ocular discharge or irritation, otalgia, rhinorrhea, phary ngitis or notable lymphadenopathy. Cardiopulmonary: Pt denies chest pain, SOB, heart palpitations, dyspnea on exertion. Abdominal/GI: Pt denies abdominal pain, n/v/d. : Pt denies dysuria, burning w/ urination, frequency/urgency. Denies new onset urinary or bowel incontinence. MSK: Pt denies myalgia, loss of strength or function in extremities. Neuro: Pt denies new onset weakness, paresthesias. - Related Data Home Medications Medication Instructions Recorded Confirmed No Known Home Medications 01/20/17 04/09/18 Allergies Allergy/AdvReac Type Severity Reaction Status Date / Time No Known Allergies Allergy Verified 06/21/19 20:45 Review of Systems ROS Statement: Those systems with pertinent positive or pertinent negative responses have been documented in the HPI. ROS Other: All systems not noted in ROS Statement are negative. 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," hypoglycemia, Last Myocardial Infarction Date:: 2011 History of Any Multi-Drug Resistant Organisms: None Reported Past Surgical History: Orthopedic Surgery, Tonsillectomy Additional Past Surgical History / Comment(s): bilateral knee arthoscopic, bilateral rotator cuff repair Past Anesthesia/Blood Transfusion Reactions: No Reported Reaction Past Psychological History: No Psychological Hx Reported Smoking Status: Never smoker Past Alcohol Use History: Occasional Past Drug Use History: Marijuana - Past Family History Father Family Medical History: Diabetes Mellitus General Exam - General Exam Comments Initial Comments: Constitutional: NAD, AOX3, Pt has pleasant affect. HEENT: NC/AT, trachea midline, neck supple, no lymphadenopathy. Posterior pharynx non erythematous, without exudates. External ears appear normal, without discharge. Mucous membranes moist. Eyes PERRLA, EOM intact. There is no scleral icterus. No pallor noted. Cardiopulmonary: RRR, no murmurs, rubs or gallops, no JVD noted. Lungs CTAB in anterior and posterior willis. No peripheral edema. Abdominal exam: Abdomen soft and non-distended. Abdomen non-tender to palpation in all 4 quadrants. Bowel sounds active in LLQ. No hepatosplenomegaly. No ecchymosis Neuro: CN II-XII grossly intact. No nuchal rigidity. No raccon eyes, no hall sign, no hemotympanum. Mild amount cervical spinal tenderness. MSK: Sick lumbar spine mildly tender to palpation. No skin changes. Heel to toe walking intact. 5 out of 5 strength of her lower extremity straight and laboratory data difficulty. No posterior calf tenderness bilaterally, homans sign negative bilaterally. Posterior tibialis and radial pulse +2 bilaterally. Sensation intact in upper and lower extremities. Full active ROM in upper and lower extremities, 5/5 stregnth. Limitations: no limitations Course Vital Signs 06/21/19 20:42 Temperature 98.1 F Pulse Rate 105 H Respiratory 18 Rate Blood Pressure 142/81 O2 Sat by Pulse 99 Oximetry Medical Decision Making - Medical Decision Making 23-year-old male patient presented for chief complaint of slip and fall. Patient reports he did have possible loss of consciousness. Patient will signs are stable, afebrile. Physical exam displayed mild tenderness to palpation cervical thoracic lumbar spine. Neurologic exam within normal limits. Laboratory data difficulty. CT brain C-spine negative. Plain films negative. Patient feeling much improved. Patient will be discharged for follow-up with primary care provider. Case discussed with Dr. Tran. Disposition Clinical Impression: Fall Disposition: HOME SELF-CARE Condition: Stable Instructions (If sedation given, give patient instructions): Fall Prevention (ED) Additional Instructions: Follow-up with primary care provider tomorrow. Return to ER if condition worsens in any way. Is patient prescribed a controlled substance at d/c from ED?: No Referrals: Marcelo Chicas MD [Primary Care Provider] - 1-2 days
[2019-06-21 22:37] VITALS: BP 150/89; PULSE 97
== END 2019-06-21 22:36 | disposition home or self-care (01) ==
LOC: EC 20:41
DX: Z04.3 Encounter for examination and observation following other accident (principal); I25.2 Old myocardial infarction; W01.0XXA Fall on same level from slipping, tripping and stumbling without subsequent striking against object, initial encounter; Y93.01 Activity, walking, marching and hiking
CPT/HCPCS: 72072; 72100; 72170; 72125; 70450; 99284; 96372; J2270

== ENCOUNTER 2019-07-19 05:22 | Emergency (ER) | payer BC ==
[2019-07-19 05:33] VITALS: RESP 16
[2019-07-19] MEDS ORDERED: ONDANSETRON 4 MG/2 ML VIAL IVP STA (05:56)
[2019-07-19] MEDS ORDERED: SODIUM CHLORIDE 0.9% 1,000 ML IV STA (05:56)
[2019-07-19 06:27] LABS: Basophils % (A) 0 %; Eosinophils # (A) 0.2 k/uL (0-0.7); Eosinophils % (A) 1 %; HCT 51.1 % (39.0-53.0); HGB 17.9 gm/dL (13.0-17.5); Lymphocytes # (A) 1.1 k/uL (1.0-4.8); Lymphocytes % (A) 7 %; MCH 31.3 pg (25.0-35.0); MCHC 35.1 g/dL (31.0-37.0); MCV 89.2 fL (80.0-100.0); Mean Platelet Volume 7.5; Monocytes # (A) 0.5 k/uL (0-1.0); Monocytes % (A) 3 %; Neutrophils # (A) 13.2 k/uL (1.3-7.7); Neutrophils % (A) 87 %; Platelet Count 184 k/uL (150-450); RBC 5.73 m/uL (4.30-5.90); RDW 12.2 % (11.5-15.5); WBC 15.2 k/uL (3.8-10.6)
[2019-07-19 06:28] LABS: Appearance,Urine Clear (Clear); Bilirubin,Urine Negative (Negative); Blood,Urine Negative (Negative); Color,Urine Yellow; Glucose,Urine (UA) Negative (Negative); Ketones,Urine Negative (Negative); Leukocyte Esterase,Urine Small (Negative); Mucus,Urine Moderate /hpf; Nitrite,Urine Negative (Negative); PH, Urine 6.5 (5.0-8.0); Protein,Urine Trace (Negative); RBC,Urine 1 /hpf (0-5); Specific Gravity,Urine 1.025 (1.001-1.035); Squamous Epithelial Cell,Urine 1 /hpf (0-4); WBC,Urine 13 /hpf (0-5)
--- NOTE | 2019-07-19 06:31 | ED ---
Abdominal Pain HPI - General Chief Complaint: Abdominal Pain Stated Complaint: Abd/Chest Pain Time Seen by Provider: 07/19/19 05:26 Source: patient Mode of arrival: ambulatory Limitations: no limitations - History of Present Illness Initial Comments: Inocente is a pleasant 23-year-old gentleman who presents to the emergency department today for evaluation of abdominal pain. Patient reports that in normal dinner last night, developed some abdominal cramping and was able to sleep. This morning was worsening abdominal pain then began to feel generalized malaise, body aches, subjective fever, nausea and discomfort radiating from his epigastrium into his chest. Upon reevaluation patient has developed chills providers procedures well. - Related Data Home Medications Medication Instructions Recorded Confirmed No Known Home Medications 01/20/17 04/09/18 Allergies Allergy/AdvReac Type Severity Reaction Status Date / Time No Known Allergies Allergy Verified 07/19/19 05:34 Review of Systems ROS Statement: Those systems with pertinent positive or pertinent negative responses have been documented in the HPI. ROS Other: All systems not noted in ROS Statement are negative. 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," hypoglycemia, Last Myocardial Infarction Date:: 2011 History of Any Multi-Drug Resistant Organisms: None Reported Past Surgical History: Orthopedic Surgery, Tonsillectomy Additional Past Surgical History / Comment(s): bilateral knee arthoscopic, bilateral rotator cuff repair Past Anesthesia/Blood Transfusion Reactions: No Reported Reaction Past Psychological History: No Psychological Hx Reported Smoking Status: Never smoker Past Alcohol Use History: Occasional Past Drug Use History: Marijuana - Past Family History Father Family Medical History: Diabetes Mellitus General Exam - General Exam Comments Initial Comments: Physical Exam GENERAL: Patient is well-developed and well-nourished. shaking rigors, appears uncomfortable flulike HENT: Normocephalic, Atraumatic. EYES: PERRL, EOMI PULMONARY: Unlabored respirations. No audible rales rhonchi or wheezing was noted. CARDIOVASCULAR: There is a regular rate and rhythm without any murmurs gallops or rubs. ABDOMEN: Soft and nontender with normal bowel sounds. SKIN: Diaphoretic : Deferred NEUROLOGIC: Patient is alert and oriented x3. Moving all extremities spontaneously MUSCULOSKELETAL: Normal extremities with adequate strength and full range of motion. No lower extremity swelling or edema. No calf tenderness. PSYCHIATRIC: Normal psychiatric evaluation. Limitations: no limitations Course Vital Signs 07/19/19 07/19/19 05:30 07:17 Temperature 97.9 F 98 F Pulse Rate 79 74 Respiratory 16 16 Rate Blood Pressure 141/93 133/79 O2 Sat by Pulse 98 99 Oximetry Medical Decision Making - Medical Decision Making Patient was seen and evaluated history was obtained from patient. History and physical exam are concerning for likely influenza type B as the patient is having generalized body aches, joint pains, malaise, nausea, rigors, shaking abdominal discomfort discussed with the patient the utility of influenza testing is minimal tenderness I wouldn't recommend treatment with Tamiflu or hospitalization. Patient is agreeable. Basic labs will be tested to assess for any nausea abnormalities she'll be given IV fluids. Supportive care was discussed. Labs resulted with mild leukocytosis likely reactive to acute illness. Very mildly elevated bilirubin. I still suspect the patient is suffering from flulike illness possibly influenza. At this time patient be discharged home, supportive care measures were discussed return parameters were discussed patient was advised follow-up with his primary care physician due to his mildly elevated bilirubin. Patient's breast understanding of this. Patient was given a work note for 2 days off work so he can rest and recover. - Lab Data Result diagrams: 07/19/19 06:05 07/19/19 06:05 Lab Results 07/19/19 07/19/19 07/19/19 Range/Units 06:05 06:05 06:05 WBC 15.2 H (3.8-10.6) k/uL RBC 5.73 (4.30-5.90) m/uL Hgb 17.9 H (13.0-17.5) gm/dL Hct 51.1 (39.0-53.0) % MCV 89.2 (80.0-100.0) fL MCH 31.3 (25.0-35.0) pg MCHC 35.1 (31.0-37.0) g/dL RDW 12.2 (11.5-15.5) % Plt Count 184 (150-450) k/uL Neutrophils % 87 % Lymphocytes % 7 % Monocytes % 3 % Eosinophils % 1 % Basophils % 0 % Neutrophils # 13.2 H (1.3-7.7) k/uL Lymphocytes # 1.1 (1.0-4.8) k/uL Monocytes # 0.5 (0-1.0) k/uL Eosinophils # 0.2 (0-0.7) k/uL Basophils # 0.0 (0-0.2) k/uL Sodium 140 (137-145) mmol/L Potassium 5.0 (3.5-5.1) mmol/L Chloride 106 (98-107) mmol/L Carbon Dioxide 23 (22-30) mmol/L Anion Gap 11 mmol/L BUN 12 (9-20) mg/dL Creatinine 0.95 (0.66-1.25) mg/dL Est GFR (CKD-EPI)AfAm >90 (>60 ml/min/1.73 sqM) Est GFR (CKD-EPI)NonAf >90 (>60 ml/min/1.73 sqM) Glucose 96 (74-99) mg/dL Calcium 10.1 (8.4-10.2) mg/dL Total Bilirubin 1.7 H (0.2-1.3) mg/dL AST 43 (17-59) U/L ALT 14 L (21-72) U/L Alkaline Phosphatase 60 (38-126) U/L Troponin I <0.012 (0.000-0.034) ng/mL Total Protein 8.5 H (6.3-8.2) g/dL Albumin 5.2 H (3.5-5.0) g/dL Lipase 54 (23-300) U/L Urine Color Urine Appearance (Clear) Urine pH (5.0-8.0) Ur Specific [place] (1.001-1.035) Urine Protein (Negative) Urine Glucose (UA) (Negative) Urine Ketones (Negative) Urine Blood (Negative) Urine Nitrite (Negative) Urine Bilirubin (Negative) Urine Urobilinogen (<2.0) mg/dL Ur Leukocyte Esterase (Negative) Urine RBC (0-5) /hpf Urine WBC (0-5) /hpf Ur Squamous Epith Cells (0-4) /hpf Urine Mucus (None) /hpf 07/19/19 Range/Units 06:05 WBC (3.8-10.6) k/uL RBC (4.30-5.90) m/uL Hgb (13.0-17.5) gm/dL Hct (39.0-53.0) % MCV (80.0-100.0) fL MCH (25.0-35.0) pg MCHC (31.0-37.0) g/dL RDW (11.5-15.5) % Plt Count (150-450) k/uL Neutrophils % % Lymphocytes % % Monocytes % % Eosinophils % % Basophils % % Neutrophils # (1.3-7.7) k/uL Lymphocytes # (1.0-4.8) k/uL Monocytes # (0-1.0) k/uL Eosinophils # (0-0.7) k/uL Basophils # (0-0.2) k/uL Sodium (137-145) mmol/L Potassium (3.5-5.1) mmol/L Chloride (98-107) mmol/L Carbon Dioxide (22-30) mmol/L Anion Gap mmol/L BUN (9-20) mg/dL Creatinine (0.66-1.25) mg/dL Est GFR (CKD-EPI)AfAm (>60 ml/min/1.73 sqM) Est GFR (CKD-EPI)NonAf (>60 ml/min/1.73 sqM) Glucose (74-99) mg/dL Calcium (8.4-10.2) mg/dL Total Bilirubin (0.2-1.3) mg/dL AST (17-59) U/L ALT (21-72) U/L Alkaline Phosphatase (38-126) U/L Troponin I (0.000-0.034) ng/mL Total Protein (6.3-8.2) g/dL Albumin (3.5-5.0) g/dL Lipase (23-300) U/L Urine Color Yellow Urine Appearance Clear (Clear) Urine pH 6.5 (5.0-8.0) Ur Specific [place] 1.025 (1.001-1.035) Urine Protein Trace H (Negative) Urine Glucose (UA) Negative (Negative) Urine Ketones Negative (Negative) Urine Blood Negative (Negative) Urine Nitrite Negative (Negative) Urine Bilirubin Negative (Negative) Urine Urobilinogen 2.0 (<2.0) mg/dL Ur Leukocyte Esterase Small H (Negative) Urine RBC 1 (0-5) /hpf Urine WBC 13 H (0-5) /hpf Ur Squamous Epith Cells 1 (0-4) /hpf Urine Mucus Moderate H (None) /hpf Disposition Clinical Impression: Flu-like symptoms Disposition: HOME SELF-CARE Condition: Stable Additional Instructions: Sure drinking plenty of fluids, stay hydrated, take Tylenol (500mg) and Motrin (600mg) alternating every 3-4 hours for fever Return to the emergency department if he have any worsening symptoms, chest pain shortness of breath over the doesn't improve with antipyretics All their primary care doctor the end of the week for reevaluation even if you're feeling better Is patient prescribed a controlled substance at d/c from ED?: No Referrals: Marcelo Chicas MD [Primary Care Provider] - 1-2 days
[2019-07-19 06:39] LABS: African American GFR (CKD) >90 (>60 ml/min/1.73 sqM); Albumin 5.2 g/dL (3.5-5.0); Anion Gap 11 mmol/L; Calcium 10.1 mg/dL (8.4-10.2); Carbon Dioxide 23 mmol/L (22-30); Chloride 106 mmol/L (98-107); Glucose 96 mg/dL (74-99); Non-African American GFR(CKD) >90 (>60 ml/min/1.73 sqM); Sodium 140 mmol/L (137-145); Total Bilirubin 1.7 mg/dL (0.2-1.3); Total Protein 8.5 g/dL (6.3-8.2)
[2019-07-19 06:40] LABS: ALT 14 U/L (21-72); AST 43 U/L (17-59); Alkaline Phosphatase 60 U/L (38-126); Blood Urea Nitrogen 12 mg/dL (9-20)
--- NOTE | 2019-07-19 06:40 | XR ---
EXAMINATION TYPE: XR abdomen 2V DATE OF EXAM: 07/19/2019 COMPARISON: NONE HISTORY: Abdominal TECHNIQUE: 3 views FINDINGS: Supine and upright views were obtained and show no sign of intestinal obstruction or pneumo peritoneum. Fecal pattern is normal. Bowel gas pattern is normal. Lung bases are clear. There are no definite pathologic calcifications over the kidneys. IMPRESSION: Nonacute abdomen.
[2019-07-19] MEDS ORDERED: ONDANSETRON 4 MG ODT STARTER PACK 2 TAB BTL PO STA (06:45)
[2019-07-19 07:17] VITALS: BP 133/79; PULSE 74; TEMP 98
== END 2019-07-19 07:17 | disposition home or self-care (01) ==
LOC: EC 05:22
DX: R10.9 Unspecified abdominal pain (principal); D72.829 Elevated white blood cell count, unspecified; E80.7 Disorder of bilirubin metabolism, unspecified; R53.81 Other malaise; R11.0 Nausea; R50.9 Fever, unspecified; I25.2 Old myocardial infarction
CPT/HCPCS: 36415; 80053; 83690; 84484; 85025; 81001; 74019; 99284; 96374; 96361; J2405; S0119

== ENCOUNTER → 2021-11-06 | Outpatient (CLI) | payer BC ==
--- NOTE | 2021-11-06 16:34 | XR ---
EXAMINATION TYPE: XR knee complete RT DATE OF EXAM: 11/06/2021 COMPARISON: X-ray dated 03/26/2010 INDICATION: Pain for 3 months TECHNIQUE: Standard 3 views of the right knee. FINDINGS: No definite acute fracture line identified. No significant degenerative changes of the right knee emily nt. No sizable knee joint effusion. IMPRESSION: Grossly unremarkable x-ray of the right knee.
== END | disposition home or self-care (01) ==
LOC: RADXRMAIN 13:42
PROVIDERS: ATTEND Family Medicine
DX: M25.561 Pain in right knee (principal)

== ENCOUNTER 2023-01-29 05:44 | Emergency (ER) | payer BC ==
[2023-01-29 06:13] VITALS: BP 133/80; PULSE 75; RESP 18; TEMP 97.8
[2023-01-29] MEDS ORDERED: ORPHENADRINE 30 MG/ML 2 ML VIAL IVP STA (07:25)
--- NOTE | 2023-01-29 07:26 | ED ---
General Adult HPI - General Chief complaint: Recheck/Abnormal Lab/Rx Stated complaint: All over pain, lack of sleep Time Seen by Provider: 01/29/23 07:11 Source: patient, RN notes reviewed Mode of arrival: ambulatory Limitations: no limitations - History of Present Illness Initial comments: Patient is a pleasant 27-year-old male presenting to the emergency Department with complaints of diffuse pain. Symptoms have been occurring for the past couple of days. Patient has pain in his ribs and neck and arms and legs. Also somewhat in the back. No abdominal pain. No history of similar symptoms previously. Patient has mild congestion. Patient did take Motrin 800 without improvement. No trauma. Patient does have chronic knee pain - Related Data Previous Rx's Medication Instructions Recorded Cyclobenzaprine [Flexeril] 10 mg PO TID PRN #12 tablet 01/29/23 Allergies Allergy/AdvReac Type Severity Reaction Status Date / Time No Known Allergies Allergy Verified 01/29/23 06:10 Review of Systems ROS Statement: Those systems with pertinent positive or pertinent negative responses have been documented in the HPI. ROS Other: All systems not noted in ROS Statement are negative. 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," hypoglycemia, Last Myocardial Infarction Date:: 2011 History of Any Multi-Drug Resistant Organisms: None Reported Past Surgical History: Orthopedic Surgery, Tonsillectomy Additional Past Surgical History / Comment(s): bilateral knee arthoscopic, bilateral rotator cuff repair Past Anesthesia/Blood Transfusion Reactions: No Reported Reaction Past Psychological History: No Psychological Hx Reported Smoking Status: Current every day smoker Past Alcohol Use History: Occasional Past Drug Use History: Marijuana - Past Family History Father Family Medical History: Diabetes Mellitus General Exam Limitations: no limitations General appearance: alert, in no apparent distress Head exam: Present: normocephalic Eye exam: Present: normal appearance Neck exam: Present: normal inspection Respiratory exam: Present: normal lung sounds bilaterally Cardiovascular Exam: Present: regular rate, normal rhythm GI/Abdominal exam: Present: soft. Absent: tenderness Extremities exam: Present: normal inspection, full ROM. Absent: tenderness, pedal edema, calf tenderness Back exam: Present: normal inspection Neurological exam: Present: alert. Absent: motor sensory deficit Psychiatric exam: Present: normal affect, normal mood Skin exam: Present: normal color Course Vital Signs 01/29/23 06:10 Temperature 97.8 F Pulse Rate 75 Respiratory 18 Rate Blood Pressure 133/80 O2 Sat by Pulse 98 Oximetry Medical Decision Making - Medical Decision Making Was pt. sent in by a medical professional or institution (, PA, ELECTRIC RANGE SERVICER, urgent care, hospital, or senior care...) When possible be specific @ -No Did you speak to anyone other than the patient for history (EMS, parent, family, police, friend...)? What history was obtained from this source @ -No Did you review nursing and triage notes (agree or disagree)? Why? @ -I reviewed and agree with nursing and triage notes Were old charts reviewed (outside hosp., previous admission, EMS record, old EKG, old radiological studies, urgent care reports/EKG's, senior care records)? Report findings @ -No old charts were reviewed Differential Diagnosis (chest pain, altered mental status, abdominal pain women, abdominal pain men, vaginal bleeding, weakness, fever, dyspnea, syncope, headache, dizziness, GI bleed, back pain, seizure, CVA, palpatations, mental health)? @ -Differential Weakness: Hypoglycemia, shock, sepsis, hyponatremia, anemia, infection, GA, ETOH, adverse medicine reaction, overdose, stroke, this is not meant to be an all-inclusive list. EKG interpreted by me (3pts min.). @ -As above X-rays interpreted by me (1pt min.). @ -Chest x-ray shows no acute process CT interpreted by me (1pt min.). @ -None done U/S interpreted by me (1pt. min.). @ -None done What testing was considered but not performed or refused? (CT, X-rays, U/S, labs)? Why? @ -None What meds were considered but not given or refused? Why? @ -None Did you discuss the management of the patient with other professionals (professionals i.e. , PA, ELECTRIC RANGE SERVICER, lab, RT, psych nurse, professor of social work, selenium plant operator, teacher, bomb squad officer, family service caseworker)? Give summary @ -No Was smoking cessation discussed for >3mins.? @ -No Was critical care preformed (if so, how long)? @ -No Were there social determinants of health that impacted care today? How? (Homelessness, low income, unemployed, alcoholism, drug addiction, tr ansportation, low edu. Level, literacy, decrease access to med. care, halfway, rehab)? @ -No Was there de-escalation of care discussed even if they declined (Discuss DNR or withdrawal of care, Hospice)? DNR status @ -No What co-morbidities impacted this encounter? (DM, HTN, Smoking, COPD, CAD, Cancer, CVA, ARF, Chemo, Hep., AIDS, mental health diagnosis, sleep apnea, morbid obesity)? @ -None Was patient admitted / discharged? Hospital course, mention meds given and route, prescriptions, significant lab abnormalities, going to OR and other pertinent info. @ -Patient reevaluated and does have some improvement with muscle extra. Patient is updated on results and need for follow-up with further investigation. Undiagnosed new problem with uncertain prognosis? @ -No Drug Therapy requiring intensive monitoring for toxicity (Heparin, Nitro, Insulin, Cardizem)? @ -No Were any procedures done? @ -No Diagnosis/symptom? @ -Myalgias Acute, or Chronic, or Acute on Chronic? @ -Acute Uncomplicated (without systemic symptoms) or Complicated (systemic symptoms)? @ -default Side effects of treatment? @ -No Exacerbation, Progression, or Severe Exacerbation? @ -No Poses a threat to life or bodily function? How? (Chest pain, [place], GA, pneumonia, PE, COPD, DKA, ARF, appy, cholecystitis, CVA, Diverticulitis, Homicidal, Suicidal, threat to staff... and all critical care pts) @ -No - Lab Data Result diagrams: 01/29/23 07:29 01/29/23 07:29 Lab Results 01/29/23 01/29/23 01/29/23 Range/Units 07:29 07:29 07:29 WBC 10.0 (3.8-10.6) k/uL RBC 5.40 (4.30-5.90) m/uL Hgb 16.9 (13.0-17.5) gm/dL Hct 48.8 (39.0-53.0) % MCV 90.2 (80.0-100.0) fL MCH 31.3 (25.0-35.0) pg MCHC 34.7 (31.0-37.0) g/dL RDW 12.1 (11.5-15.5) % Plt Count 223 (150-450) k/uL MPV 8.2 Neutrophils % 52 % Lymphocytes % 33 % Monocytes % 7 % Eosinophils % 6 % Basophils % 1 % Neutrophils # 5.1 (1.3-7.7) k/uL Lymphocytes # 3.3 (1.0-4.8) k/uL Monocytes # 0.7 (0-1.0) k/uL Eosinophils # 0.6 (0-0.7) k/uL Basophils # 0.1 (0-0.2) k/uL Sodium 140 (137-145) mmol/L Potassium 4.3 (3.5-5.1) mmol/L Chloride 106 (98-107) mmol/L Carbon Dioxide 28 (22-30) mmol/L Anion Gap 6 mmol/L BUN 18 (9-20) mg/dL Creatinine 1.04 (0.66-1.25) mg/dL Est GFR (CKD-EPI)AfAm >90 (>60 ml/min/1.73 sqM) Est GFR (CKD-EPI)NonAf >90 (>60 ml/min/1.73 sqM) Glucose 95 (74-99) mg/dL Calcium 9.8 (8.4-10.2) mg/dL Magnesium 2.2 (1.6-2.3) mg/dL Total Bilirubin 0.6 (0.2-1.3) mg/dL AST 27 (17-59) U/L ALT 20 (4-49) U/L Alkaline Phosphatase 72 (38-126) U/L Creatine Kinase 170 (55-170) U/L C-Reactive Protein <0.5 (<1.0) mg/dL Total Protein 7.8 (6.3-8.2) g/dL Albumin 4.8 (3.5-5.0) g/dL Urine Color Urine Appearance (Clear) Urine pH (5.0-8.0) Ur Specific [place] (1.001-1.035) Urine Protein (Negative) Urine Glucose (UA) (Negative) Urine Ketones (Negative) Urine Blood (Negative) Urine Nitrite (Negative) Urine Bilirubin (Negative) Urine Urobilinogen (<2.0) mg/dL Ur Leukocyte Esterase (Negative) Influenza Type A (PCR) Not Detected (Not Detectd) Influenza Type B (PCR) Not Detected (Not Detectd) RSV (PCR) Not Detected (Not Detectd) SARS-CoV-2 (PCR) Not Detected (Not Detectd) 01/29/23 Range/Units 07:29 WBC (3.8-10.6) k/uL RBC (4.30-5.90) m/uL Hgb (13.0-17.5) gm/dL Hct (39.0-53.0) % MCV (80.0-100.0) fL MCH (25.0-35.0) pg MCHC (31.0-37.0) g/dL RDW (11.5-15.5) % Plt Count (150-450) k/uL MPV Neutrophils % % Lymphocytes % % Monocytes % % Eosinophils % % Basophils % % Neutrophils # (1.3-7.7) k/uL Lymphocytes # (1.0-4.8) k/uL Monocytes # (0-1.0) k/uL Eosinophils # (0-0.7) k/uL Basophils # (0-0.2) k/uL Sodium (137-145) mmol/L Potassium (3.5-5.1) mmol/L Chloride (98-107) mmol/L Carbon Dioxide (22-30) mmol/L Anion Gap mmol/L BUN (9-20) mg/dL Creatinine (0.66-1.25) mg/dL Est GFR (CKD-EPI)AfAm (>60 ml/min/1.73 sqM) Est GFR (CKD-EPI)NonAf (>60 ml/min/1.73 sqM) Glucose (74-99) mg/dL Calcium (8.4-10.2) mg/dL Magnesium (1.6-2.3) mg/dL Total Bilirubin (0.2-1.3) mg/dL AST (17-59) U/L ALT (4-49) U/L Alkaline Phosphatase (38-126) U/L Creatine Kinase (55-170) U/L C-Reactive Protein (<1.0) mg/dL Total Protein (6.3-8.2) g/dL Albumin (3.5-5.0) g/dL Urine Color Yellow Urine Appearance Clear (Clear) Urine pH 5.5 (5.0-8.0) Ur Specific [place] 1.021 (1.001-1.035) Urine Protein Negative (Negative) Urine Glucose (UA) Negative (Negative) Urine Ketones Negative (Negative) Urine Blood Negative (Negative) Urine Nitrite Negative (Negative) Urine Bilirubin Negative (Negative) Urine Urobilinogen <2.0 (<2.0) mg/dL Ur Leukocyte Esterase Negative (Negative) Influenza Type A (PCR) (Not Detectd) Influenza Type B (PCR) (Not Detectd) RSV (PCR) (Not Detectd) SARS-CoV-2 (PCR) (Not Detectd) Disposition Clinical Impression: Myalgia Disposition: HOME SELF-CARE Condition: Stable Instructions (If sedation given, give patient instructions): Musculoskeletal Pain (ED) Additional Instructions: Please do follow-up with your primary care physician in the next day or 2 for recheck. Return for fevers, increased pain, weakness, worsening or changing symptoms or other concerns. Prescription for muscle relaxers have been sent to pharmacy Prescriptions: Cyclobenzaprine [Flexeril] 10 mg PO TID PRN #12 tablet PRN Reason: Pain Is patient prescribed a controlled substance at d/c from ED?: No Referrals: Marcelo Chicas MD [Primary Care Provider] - 1-2 days Time of Disposition: 10:08
[2023-01-29 07:43] LABS: Basophils # (A) 0.1 k/uL (0-0.2); Basophils % (A) 1 %; Eosinophils # (A) 0.6 k/uL (0-0.7); Eosinophils % (A) 6 %; HCT 48.8 % (39.0-53.0); HGB 16.9 gm/dL (13.0-17.5); Lymphocytes # (A) 3.3 k/uL (1.0-4.8); Lymphocytes % (A) 33 %; MCH 31.3 pg (25.0-35.0); MCHC 34.7 g/dL (31.0-37.0); MCV 90.2 fL (80.0-100.0); Mean Platelet Volume 8.2; Monocytes # (A) 0.7 k/uL (0-1.0); Monocytes % (A) 7 %; Neutrophils # (A) 5.1 k/uL (1.3-7.7); Neutrophils % (A) 52 %; Platelet Count 223 k/uL (150-450); RDW 12.1 % (11.5-15.5)
[2023-01-29 08:02] LABS: ALT 20 U/L (4-49); AST 27 U/L (17-59); African American GFR (CKD) >90 (>60 ml/min/1.73 sqM); Albumin 4.8 g/dL (3.5-5.0); Alkaline Phosphatase 72 U/L (38-126); Anion Gap 6 mmol/L; Blood Urea Nitrogen 18 mg/dL (9-20); Calcium 9.8 mg/dL (8.4-10.2); Carbon Dioxide 28 mmol/L (22-30); Chloride 106 mmol/L (98-107); Creatine Kinase 170 U/L (55-170); Glucose 95 mg/dL (74-99); Magnesium 2.2 mg/dL (1.6-2.3); Non-African American GFR(CKD) >90 (>60 ml/min/1.73 sqM); Potassium 4.3 mmol/L (3.5-5.1); Sodium 140 mmol/L (137-145); Total Bilirubin 0.6 mg/dL (0.2-1.3); Total Protein 7.8 g/dL (6.3-8.2)
[2023-01-29 08:07] LABS: Appearance,Urine Clear (Clear); Bilirubin,Urine Negative (Negative); Blood,Urine Negative (Negative); Color,Urine Yellow; Glucose,Urine (UA) Negative (Negative); Ketones,Urine Negative (Negative); Leukocyte Esterase,Urine Negative (Negative); Nitrite,Urine Negative (Negative); PH, Urine 5.5 (5.0-8.0); Protein,Urine Negative (Negative); Specific Gravity,Urine 1.021 (1.001-1.035); Urobilinogen,Urine <2.0 mg/dL (<2.0)
--- NOTE | 2023-01-29 08:22 | XR ---
EXAMINATION TYPE: XR chest 2V DATE OF EXAM: 01/29/2023 COMPARISON: 04/09/2018 HISTORY: 27-year-old male with weakness TECHNIQUE: PA and lateral views FINDINGS: The cardiomediastinal silhouette, aorta, and pulmonary vasculature are within normal limits. Lungs an d pleural spaces are clear. IMPRESSION: No acute cardiopulmonary process.
[2023-01-29 09:14] LABS: C Reactive Protein <0.5 mg/dL (<1.0)
[2023-01-29] MEDS ORDERED: ACET/COD 300 MG/30 MG STARTER PACK 6 TAB BTL PO STA (10:06)
== END 2023-01-29 10:21 | disposition home or self-care (01) ==
LOC: EC 05:44
DX: M79.10 Myalgia, unspecified site (principal); J45.909 Unspecified asthma, uncomplicated; I25.2 Old myocardial infarction; F17.200 Nicotine dependence, unspecified, uncomplicated; F12.90 Cannabis use, unspecified, uncomplicated; Z20.822 Contact with and (suspected) exposure to COVID-19
CPT/HCPCS: 36415; 80053; 82550; 83735; 85025; 86140; 81003; 87636; 71046; 99283; 96374; J2360

== ENCOUNTER 2023-02-12 18:04 | Emergency (ER) | payer BC ==
[2023-02-12 18:32] VITALS: TEMP 98.6
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
[2023-02-12 19:48] VITALS: RESP 18
--- NOTE | 2023-02-12 20:01 | CT ---
EXAMINATION TYPE: CT cervical spine wo con CT DLP: 447.1 mGycm, Automated exposure control for dose reduction was used. DATE OF EXAM: 02/12/2023 7:45 PM COMPARISON: CT brain C-spine 06/21/2019. CLINICAL INDICATION:Male, 27 years old with history of neck pain post injury; PHH, Neck pain post inj ury. Hx of C7 fx. TECHNIQUE: Axial CT images from the skull base to the inferior aspect of T2 we obtained without intra venous contrast. Coronal and sagittal reformatted images were also reviewed. FINDINGS: Fracture: None. Osseous structures: Unremarkable Vertebral alignment: Similar grade 1 anterolisthesis of C2 on C3. Spinal canal/Neural Foramina: Eccentric left disc bulge in the central/paracentral region with at [address] mild spinal canal stenosis at C5-C6 broad-based disc bulge at C6-C7 with at least mild spinal allyssa l stenosis. No evidence for significant neural foraminal stenosis. Neck soft tissues: Prevertebral soft tissues are within normal limits. Other: The airway is patent. The lung apices are clear. Scattered ethmoid sinus mild mucosal thickeni ng with likely mucous retention cyst within the inferior left maxillary sinus. Periapical lucency inv olving the right posterior maxillary molar. IMPRESSION: 1. No evidence of cervical spine fracture. 2. Mild multilevel degenerative disc disease at C5-C6 and C6-C7 with at least mild spinal canal steno sis.
[2023-02-12] MEDS ORDERED: KETOROLAC 15 MG/ML 1 ML VIAL IM STA (20:22)
[2023-02-12 21:01] VITALS: BP 146/96; PULSE 76
== END 2023-02-12 21:01 | disposition home or self-care (01) ==
LOC: EC 18:04
DX: S16.1XXA Strain of muscle, fascia and tendon at neck level, initial encounter (principal); J45.909 Unspecified asthma, uncomplicated; I25.2 Old myocardial infarction; F12.90 Cannabis use, unspecified, uncomplicated; Z87.891 Personal history of nicotine dependence; X58.XXXA Exposure to other specified factors, initial encounter
CPT/HCPCS: 72125; 99284; 96372; J1885

== ENCOUNTER 2023-09-12 21:11 | Emergency (ER) | payer BC ==
--- NOTE | 2023-09-12 21:36 | ED ---
Extremity Problem HPI - General Stated complaint: left arm pain Time Seen by Provider: 09/12/23 21:35 Source: patient Mode of arrival: ambulatory Limitations: no limitations - History of Present Illness Initial comments: 27-year-old male presenting with chief complaint of left arm pain. Has been ongoing for 2 weeks. No preceding injury or trauma. He does have history of cervical spine fracture and surgery, no numbness tingling or weakness.. Was seen at urgent care and given muscle relaxers and steroids which he states has not affected the pain. Pain is focused at the shoulder. There is some increased pain at the elbow as well. No chest pain or difficulty breathing. No fevers or chills. No joint swelling or redness. - Related Data Previous Rx's Medication Instructions Recorded Cyclobenzaprine [Flexeril] 10 mg PO TID PRN #12 tablet 01/29/23 Allergies Allergy/AdvReac Type Severity Reaction Status Date / Time No Known Allergies Allergy Verified 02/12/23 18:27 Review of Systems ROS Statement: Those systems with pertinent positive or pertinent negative responses have been documented in the HPI. ROS Other: All systems not noted in ROS Statement are negative. 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," hypoglycemia, Last Myocardial Infarction Date:: 2011 History of Any Multi-Drug Resistant Organisms: None Reported Past Surgical History: Orthopedic Surgery, Tonsillectomy Additional Past Surgical History / Comment(s): bilateral knee arthoscopic, bilateral rotator cuff repair Past Anesthesia/Blood Transfusion Reactions: No Reported Reaction Past Psychological History: No Psychological Hx Reported Smoking Status: Former smoker Past Alcohol Use History: None Reported Past Drug Use History: Marijuana - Past Family History Father Family Medical History: Diabetes Mellitus General Exam - General Exam Comments Initial Comments: Visual Physical Exam Vital signs reviewed General: Well-appearing, nontoxic, no acute distress. Head: Normocephalic, atraumatic Eyes: PERRLA, EOMI ENT: Airway patent Chest: Nonlabored breathing Skin: No visual rash, normal skin tone Neuro: Alert and oriented 3 Musculoskeletal: No gross abnormalities Limitations: no limitations General appearance: alert, in no apparent distress Head exam: Present: atraumatic, normocephalic Eye exam: Present: normal appearance Neck exam: Present: normal inspection, full ROM. Absent: tenderness, meningismus Respiratory exam: Absent: respiratory distress Cardiovascular Exam: Present: regular rate Left Shoulder Exam: Present: normal inspection, full ROM, tenderness Upper Arm exam: Present: normal inspection, full ROM. Absent: tenderness Elbow exam: Present: normal inspection, full ROM, tenderness Forearm Wrist exam: Present: normal inspection, full ROM. Absent: tenderness Vascular: Present: radial pulse (2+). Absent: vascular compromise Neurological exam: Present: alert, oriented X3 Psychiatric exam: Present: normal affect, normal mood Skin exam: Present: warm, dry Course Vital Signs 09/12/23 21:33 Temperature 98.6 F Pulse Rate 89 Respiratory 18 Rate Blood Pressure 126/77 O2 Sat by Pulse 99 Oximetry Medical Decision Making - Medical Decision Making Was pt. sent in by a medical professional or institution (NATHAN Stephenson, RECORDIST CHIEF, urgent care, hospital, or halfway...) When possible be specific @ -No Did you speak to anyone other than the patient for history (EMS, parent, family, police, friend...)? What history was obtained from this source @ -No Did you review nursing and triage notes (agree or disagree)? Why? @ -I reviewed and agree with nursing and triage notes Were old charts reviewed (outside hosp., previous admission, EMS record, old EKG, old radiological studies, urgent care reports/EKG's, halfway records)? Report findings @ -No old charts were reviewed Differential Diagnosis (chest pain, altered mental status, abdominal pain women, abdominal pain men, vaginal bleeding, weakness, fever, dyspnea, syncope, headache, dizziness, GI bleed, back pain, seizure, CVA, palpatations, mental health, musculoskeletal)? @ -Differential Musculoskeletal Muscular strain, contusion, ligament sprain, fracture, arthritis, septic arthritis, bursitis, cellulitis, muscle spasm, nerve compression, DVT, arterial occlusion, herpes zoster, electrolyte abnormality, tumor.... This is not meant to be in all inclusive list EKG interpreted by me (3pts min.). @ -As above X-rays interpreted by me (1pt min.). @ -X-ray shows no acute fracture or dislocation evident in the left shoulder. The AC and glenohumeral joint spaces appear within normal limits. The visualized ribs are intact and unremarkable CT interpreted by me (1pt min.). @ -None done U/S interpreted by me (1pt. min.). @ -None done What testing was considered but not performed or refused? (CT, X-rays, U/S, labs)? Why? @ -None What meds were considered but not given or refused? Why? @ -None Did you discuss the management of the patient with other professionals (professionals i.e. Dr., PA, RECORDIST CHIEF, lab, RT, psych nurse, social science teacher, pearl peller, teacher, chief mechanical officer, rifle case repairer)? Give summary @ -No Was smoking cessation discussed for >3mins.? @ -No Was critical care preformed (if so, how long)? @ -No Were there social determinants of health that impacted care today? How? (Homelessness, low income, unemployed, alcoholism, drug addiction, transportation, low edu. Level, literacy, decrease access to med. care, chcf, rehab)? @ -No Was there de-escalation of care discussed even if they declined (Discuss DNR or withdrawal of care, Hospice)? DNR status @ -No What co-morbidities impacted this encounter? (DM, HTN, Smoking, COPD, CAD, Cancer, CVA, ARF, Chemo, Hep., AIDS, mental health diagnosis, sleep apnea, morbid obesity)? @ -None Was patient admitted / discharged? Hospital course, mention meds given and route, prescriptions, significant lab abnormalities, going to OR and other pertinent info. @ -27-year-old male presenting with chief complaint of left arm pain ongoing for 2 weeks. No injury or trauma. The patient is neurovascularly intact. No obvious deformity. X-ray of the shoulder is negative. Patient is provided with pain medication and referral for orthopedics. Follow-up with PCP. Report back to ER with any new or worsening symptoms. Discussed return parameters and answered all questions. Patient conveyed verbal understanding and agreed to the plan. I discussed this case in detail with my attending Dr. Kolb Undiagnosed new problem with uncertain prognosis? @ -No Drug Therapy requiring intensive monitoring for toxicity (Heparin, Nitro, Insulin, Cardizem)? @ -No Were any procedures done? @ -No Diagnosis/symptom? @ -Arm pain Acute, or Chronic, or Acute on Chronic? @ -Acute Uncomplicated (without systemic symptoms) or Complicated (systemic symptoms)? @ -Uncomplicated Side effects of treatment? @ -No Exacerbation, Progression, or Severe Exacerbation? @ -No Poses a threat to life or bodily function? How? (Chest pain, [place], [place], pneumonia, PE, COPD, DKA, ARF, appy, cholecystitis, CVA, Diverticulitis, Homicidal, Suicidal, threat to staff... and all critical care pts) @ -No Disposition Clinical Impression: Shoulder pain, Tendonitis of elbow or forearm Disposition: HOME SELF-CARE Condition: Good Instructions (If sedation given, give patient instructions): Tendinitis (ED), Shoulder Pain (ED) Additional Instructions: Follow-up with PCP and orthopedics. Report back to ER with any new or worsening symptoms. Is patient prescribed a controlled substance at d/c from ED?: No Referrals: Marcelo Chicas MD [Primary Care Provider] - 1-2 days Maylin José DO [Doctor of Osteopathic Medicine] - 1-2 days Time of Disposition: 22:47
[2023-09-12 21:53] VITALS: BP 126/77; PULSE 89; RESP 18; TEMP 98.6
--- NOTE | 2023-09-12 22:34 | XR ---
EXAMINATION TYPE: XR shoulder complete LT DATE OF EXAM: 09/12/2023 CLINICAL HISTORY: Pain TECHNIQUE: Three views of the left shoulder are obtained. COMPARISON: None. FINDINGS: There is no acute fracture/dislocation evident in the left shoulder. The acromioclavicula r and glenohumeral joint spaces appear within normal limits. The visualized ribs are intact and unre markable. IMPRESSION: Unremarkable study.
[2023-09-12] MEDS: KETOROLAC 15 MG/ML 1 ML VIAL IM STA (22:54)
[2023-09-12] MEDS: ACET/COD 300 MG/30 MG STARTER PACK 6 TAB BTL PO STA (22:54)
== END 2023-09-12 22:58 | disposition home or self-care (01) ==
LOC: EC 21:11
DX: M77.9 Enthesopathy, unspecified (principal); J45.909 Unspecified asthma, uncomplicated; I25.2 Old myocardial infarction; F12.90 Cannabis use, unspecified, uncomplicated; Z87.891 Personal history of nicotine dependence
CPT/HCPCS: 73030; 99283; 96372; J1885

== ENCOUNTER → 2023-10-07 | Outpatient (CLI) | payer BC ==
--- NOTE | 2023-10-08 09:34 | MR ---
EXAMINATION TYPE: MR cervical spine wo con DATE OF EXAM: 10/08/2023 COMPARISON: Radiograph 10/01/2023 HISTORY: 27-year-old male M54.2, Neck pain, headaches, LUE weakness. Hx C7 fracture. TECHNIQUE: Multiplanar, multisequence images of the cervical spine were acquired without contrast. FINDINGS: No craniocervical junction abnormality, predental space widening, or prevertebral soft tissue swellin g. Incidentally, there is severe mucosal thickening within the visualized maxillary sinuses. Preserved alignment of the cervical spine. No suspicious bone marrow replacement. Mild degenerative disc disease mid to lower cervical spine characterized by desiccated and posterior bulging discs especially C5-C6 and C6/C7. Small posterior annular fissures are also present here. These changes are superimposed on a mild congenital spinal canal stenosis with AP canal dimension of 1.1 cm. Mild early uncovertebral joint spurring lower cervical spine. At C5-C6, broad-based posterior disc bulge abuts and flattens the central and left paracentral cord a nd contribute to moderate overall spinal canal stenosis (AP canal dimension 7 mm). There is mild unco vertebral joint spurring contributing to mild left foraminal stenosis. At C6-C7, similar broad-based posterior disc bulge abutting and slightly flattening the ventral cord, AP canal dimension 7 mm. There is bilateral uncovertebral joint spurring and some facet arthropathy contributing to moderate left greater than right neural foraminal stenosis. There is some motion artifact limiting assessment for cord signal abnormality. No definite correspond ing T2 weighted cord signal abnormality when correlating with axial series. No prevertebral or paravertebral soft tissue abnormality. IMPRESSION: 1. Mild degenerative disc disease especially C5-C7 levels superimposed on a mild congenital spinal ca nal narrowing. Changes contribute to overall moderate focal spinal canal stenoses at both of these le vels (AP canal dimension narrowed to 7 mm). 2. Additional uncovertebral joint spurring lower cervical spine. This results in moderate left greate r than right neuroforaminal stenosis at C6-C7 and mild on both sides at C5-C6. 3. Incidental severe chronic bilateral maxillary sinusitis.
== END | disposition home or self-care (01) ==
LOC: RADMRIMAIN 20:15
PROVIDERS: ATTEND Orthopaedic Surgery
DX: M50.322 Other cervical disc degeneration at C5-C6 level (principal); M50.323 Other cervical disc degeneration at C6-C7 level; M99.71 Connective tissue and disc stenosis of intervertebral foramina of cervical region; R51.9 Headache, unspecified; R53.1 Weakness
CPT/HCPCS: 72141